=== PATIENT | male | born 1940 | race Caucasian/White ===

== ENCOUNTER 2021-03-05 15:47 | Inpatient (IN) | payer MEDICARE, MEDICAID, SELFPAY ==
[2021-03-05] VITALS (10 sets, daily range): BP systolic 97–143; BP diastolic 49–78; PULSE 75–81; RESP 14–24; TEMP 37.1–37.3; O2SAT 93–100; BMI 20.7; BMI 24.7
--- NOTE | ~2021-03-05 | CT_ITS ---
EXAMINATION: CT brain wo con DATE: 03/05/2021 23:04 INDICATION: Acute cerebrovascular accident TECHNIQUE: Computed tomography (CT) of the head was performed without intravenous contrast. The mA wa s adjusted according to patient size. Iterative reconstruction technique was employed. Exam dose: 68 1.00 mGy-cm total exam DLP. COMPARISON: None FINDINGS: Bilateral carotid siphon internal carotid artery calcifications are noted. There is nonspecific diminished attenuation of the subcortical and periventricular cerebral white mat ter, likely due to chronic small vessel ischemic changes. There is moderately prominent central and cortical cerebral atrophy and cerebellar atrophy. No intracranial mass lesion or hemorrhage, midline shift or mass effect effect is evident. No CT evid ence of cerebrovascular accident is detected, but CT is not sensitive for detection of hyperacute isc hemic cerebrovascular accident. No subdural or epidural hematoma. No fracture or bone destruction of the cranial vault. The mastoid air cells are normally developed and aerated. There is moderate mucoperiosteal thickening of the maxillary sinuses 1.7 cm mucous retention cyst or polyp of the left maxillary sinus. There is prominent patchy opacification of the ethmoid air cells a nd prominent partial soft tissue opacification of the sphenoid sinuses. Minimal soft tissue thickenin g of the frontal sinuses. IMPRESSION: Cerebral atherosclerosis and chronic small vessel ischemic changes of the cerebral white matter No acute intracranial finding is identified Central and cortical cerebral and cerebellar atrophy Paranasal sinus disease Reviewed, dictated and finalized at [facility]. Reviewed, dictated and finalized at [facility].
--- NOTE | ~2021-03-05 | XR_ITS ---
EXAMINATION: XR chest 2V DATE: 03/05/2021 16:29 INDICATION: Weakness. Dizziness. Vomiting. TECHNIQUE: Frontal and lateral views of the chest were obtained. COMPARISON: Chest CT 05/31/2019 FINDINGS: The chest demonstrates clear lungs without pneumonia, pleural effusion, or pneumothorax. Th e heart size is normal. There is a left chest wall pacer with leads in the right atrium and right july tricle. Surgical clips in the right upper quadrant are likely from cholecystectomy. IMPRESSION: 1. No acute cardiopulmonary disease. Reviewed, dictated and finalized at [facility].
--- NOTE | 2021-03-05 16:01 | ECG_ITS ---
Measurements Intervals [place] Rate: 79 P: -75 MT: 211 QRS: 53 QRSD: 148 T: 12 QT: 389 QTc: 447 Interpretive Statements ELECTRONIC ATRIAL PACEMAKER VENTRICULAR PREMATURE COMPLEX RIGHT BUNDLE BRANCH BLOCK BASELINE ARTIFACT- III, V6 ABNORMAL ECG Electronically Signed On 03-05-2021 16:17:04 CDT by Ubaldo Najera D.O.
[2021-03-05 16:17] LABS: Basophils Percent Auto 0.2 % (0.2-1.2); Hematocrit 38.1 % (42.0-52.0); Hemoglobin 12.6 g/dL (14.0-18.0); Immature Granulocyte Absolute 0.09 K/mm3 (0.00-0.031); Immature Granulocyte Percent A 0.5 % (0-0.5); Lymphocytes Percent Auto 15.5 % (18.3-44.2); Mean Corpuscular HGB Conc 33.1 g/dl (32-36); Mean Corpuscular Hemoglobin 29.9 pg (26-34); Mean Corpuscular Volume 90.5 fl (80-100); Mean Platelet Volume 9.5 fl (7.4-10.4); Monocytes Absolute Auto 1.4 K/mm3 (0.1-0.6); Neutrophils Absolute Auto 13.2 K/mm3 (1.3-6.7); Neutrophils Percent Auto 75.8 % (45.5-73.1); Platelet Count Result 197 k/mm3 (150-375); Red Blood Count 4.21 M/mm3 (4.6-6.20); White Blood Count 17.4 K/mm3 (4.5-10.0)
--- NOTE | 2021-03-05 16:20 | ED.WEAKNESS ---
HPI - Weakness General Chief complaint: Weakness <GE Castillo - Last Filed: 03/06/21 16:54> Stated complaint: Weakness <GE Castillo - Last Filed: 03/06/21 16:54> Time Seen by Provider: 03/05/21 16:12 <GE Castillo - Last Filed: 03/06/21 16:54> Source: patient and family <GE Castillo - Last Filed: 03/06/21 16:54> Mode of arrival: wheelchair <GE Castillo - Last Filed: 03/06/21 16:54> Limitations: no limitations <GE Castillo - Last Filed: 03/06/21 16:54> History of Present Illness HPI Narrative: Patient is an 80 year old male who presents with family. Per family, patient has had increased weakness and decreased PO intake with vomiting x 1 for the past 2 days. Patient reports generalized weakness, headache and back pain. Patient has been vaccinated x 2 for Covid and reports no sick contacts. Per family, patient is normally walking and completes all ADLs on own. Family reports patient has been in bed x 2 days. Patient has a history of bladder cancer with urostomy placement last year and pacemaker x approximately 7 years. Patient is alert and oriented answering questions appropriately, denies chest pain or shortness of breath. <GE Castillo - Last Filed: 03/06/21 16:54> MD Complaint: generalized weakness <GE Castillo - Last Filed: 03/06/21 16:54> Related Data Home medications: Home Medications Medication Instructions Recorded Confirmed meclizine 25 mg PO TID PRN 03/06/21 03/06/21 <GE Castillo - Last Filed: 03/06/21 16:54> Allergies/Adverse reactions: Allergies Allergy/AdvReac Type Severity Reaction Status Date / Time No Known Allergies Allergy Verified 03/05/21 17:30 <GE Castillo - Last Filed: 03/06/21 16:54> Review of Systems Review of Systems: Narrative: CONSTITUTIONAL: Denies fever, chills, or sweats. EYES: Denies visual changes, redness, or discharge. ENT: Denies rhinorrhea, congestion, sore throat, or otalgia. CARDIOVASCULAR: Denies chest pain, palpitations, or edema. RESPIRATORY: Denies cough or dyspnea. GASTROINTESTINAL: Denies abdominal pain or diarrhea, reports mild nausea vomiting x1 GENITOURINARY: Denies dysuria or hematuria. SKIN: Denies rash or itching. MUSCULOSKELETAL: Reports back pain, denies joint pain, or myalgia. NEUROLOGIC: Reports headache and generalized weakness. PSYCHIATRIC: Denies anxiety or depression. <GE Castillo - Last Filed: 03/06/21 16:54> [facility] Past Medical History Medical History: Medical History (Updated 03/05/21 @ 22:47 by Ilan Blanc MD) Bladder cancer Chronic renal failure, stage 3 (moderate) Diabetes type 2, controlled Pacemaker <GE Castillo - Last Filed: 03/06/21 16:54> Surgical History Surgical History: Surgical History History of urostomy <GE Castillo - Last Filed: 03/06/21 16:54> Family History Family History: Family History Sibling Family history of Alzheimer's disease Father Family history of coronary artery disease <GE Castillo - Last Filed: 03/06/21 16:54> Social History Social History: Social History Smoking packs per day: 1 Smoking cigarettes per day: 20.0 Smoking status: Current every day smoker Tobacco type: cigarettes Alcohol intake: never Alcohol use details: occasional Substance use: never Living arrangements: with family Gender identity (if verbalized by the patient): Male Spiritual care concerns: No <GE Castillo - Last Filed: 03/06/21 16:54> Comments At the time of signature, I have reviewed and agree with nursing past medical, surgical, social, and family history unless otherwise noted. Please see nursing chart for further inform
[2021-03-05 16:24] LABS: Add Urine Microscopic? YES; Appearance Urine Cloudy (Clear); Bacteria Urine Trace /hpf; Bilirubin Urine Negative (Negative); Blood Urine Negative (Negative); Color Urine Amber (Yellow); Glucose Urine UA Negative (Negative); Ketones Urine Negative (Negative); Leukocyte Esterase Ur 3+ LEU/UL (Negative); Mucus Urine Rare /lpf; Nitrate Urine Negative (Negative); Protein Urine 2+ mg/dL (Negative); Specific Grav Ur 1.017 (1.001-1.035); Squamous Epithelial Cell Urine Rare /hpf (Few); WBC Clumps Urine Present /HPF; WBC Urine >75 /hpf
[2021-03-05 16:27] LABS: Alanine Aminotransferase 20 U/L (4-50); Albumin Level 4.1 g/dL (3.5-5.1); Alkaline Phosphatase 82 U/L (38-126); Anion Gap 7 mmol/L (8-16); Aspartate Amino Transferase 34 U/L (17-59); Blood Urea Nitrogen 41 mg/dL (9-20); Carbon Dioxide 23 mmol/L (22-30); Chloride 106 mmol/L (98-107); Estimated CRCL calculation 21 ml/min; Estimated Glomerular Filt Rate 27; Glucose 156 mg/dL (75-110); Potassium 4.8 mmol/L (3.4-5.0); Sodium 136 mmol/L (137-145)
[2021-03-05] MEDS: SODIUM CHLORIDE 0.9% IV 1,000 ML 999 ML IV CONT (17:29)
--- NOTE | 2021-03-05 20:13 | ADMGEN ---
This patient, Merle Escalona, was admitted to [facility] Surg Room 307-01. Patient/family oriented to hospital policies and general routines including ID bracelet, bed and alarms, visiting hours, pain management, procedures, bathroom and other care routines, personal items, smoking policy, room service/diet, and visiting hours. Information on how to activate the Rapid Response Team has been discussed. Patient/Family are encouraged to report perceived risks to care and to ask questions if they do not understand what they are told or what they should do.
[2021-03-05] MEDS: SODIUM CHLORIDE 0.9% IV 1,000 ML 125 ML IV CONT (20:31)
--- NOTE | 2021-03-05 22:21 | PM.IMHP ---
H&P: HPI History of Present Illness Date/Time: 03/05/21 22:21 Chief Complaint: Generalized weakness and acute encephalopathy for 2 days+ Narrative: This is an 80-year-old diabetic male with known history of bladder cancer who presented to the hospital with increased generalized weakness and decreased p.o. intake over the past couple of days. The patient's family had reported that the patient simply did not get out of bed for the past 2 days. He was found to be in acute renal failure with a creatinine of 2.30 and a grossly abnormal urinalysis. the patient was treated with IV fluids and IV antibiotics in the emergency room. On my encounter with the patient tonight he is alert and oriented to himself but has no idea why he is here in the hospital. It is unknown if the patient is has underlying dementia or has acute encephalopathy. He cannot tell me any medications that he is on and knows that he had some kind of cancer but cannot tell me what type. Currently the patient denies any significant symptoms. His family has already gone home and no other history is obtainable at this time. Review of Systems Review of Systems: All systems reviewed & are unremarkable except as noted in HPI and below PMFSH Past Medical History Medical History (Updated 03/05/21 @ 22:47 by Ilan Blanc MD) Bladder cancer Chronic renal failure, stage 3 (moderate) Diabetes type 2, controlled Pacemaker Surgical History Surgical History History of urostomy Family History Family History Sibling Family history of Alzheimer's disease Father Family history of coronary artery disease Social History Social History Smoking packs per day: 1 Smoking cigarettes per day: 20.0 Smoking status: Current every day smoker Tobacco type: cigarettes Alcohol intake: never Alcohol use details: occasional Substance use: never Living arrangements: with family Gender identity (if verbalized by the patient): Male Spiritual care concerns: No Meds Home Medications and Allergies Home Medications Medication Instructions Recorded Confirmed Type midodrine 2.5 mg PO DAILY 03/05/21 03/05/21 History Allergies Allergy/AdvReac Type Severity Reaction Status Date / Time No Known Allergies Allergy Verified 03/05/21 17:30 Vital Signs Vital Signs - 24 hr 03/05/21 16:02 03/05/21 16:07 03/05/21 16:13 Temperature 37.3 C Pulse Rate 80 78 81 Respiratory Rate 18 24 H Blood Pressure 97/78 L 143/54 H Pulse Oximetry 93 99 03/05/21 16:17 03/05/21 17:31 03/05/21 17:46 Temperature Pulse Rate 78 80 76 Respiratory Rate 23 H 24 H 23 H Blood Pressure 113/68 136/56 L 130/53 L Pulse Oximetry 97 100 99 03/05/21 18:00 03/05/21 18:02 03/05/21 18:17 Temperature Pulse Rate 75 76 79 Respiratory Rate 22 H 23 H 19 Blood Pressure 134/52 L 99/52 L Pulse Oximetry 97 98 98 03/05/21 19:30 Temperature 37.1 C Pulse Rate 75 Respiratory Rate 18 Blood Pressure 131/49 L Pulse Oximetry 97 Exam Const: General: cooperative, no acute distress, alert and awake Nutritional Appearance: well nourished Orientation/consciousness: oriented to person and confusion HENMT: Head: normal to inspection General nose exam: Normal external nose present Face and sinus: normal facial exam Mouth: Yes Normal oral and palatal mucosa present and Yes oropharynx normal Eyes: Pupils: Equal, round and reactive pupils present EOM: EOMs intact bilaterally Neck: Neck: supple and no JVD Thyroid: thyroid normal Lymphatic: lymphadenopathy not noted Resp: Effort & Inspection: normal respiratory effort Auscultation: clear to auscultation bilaterally Cardio: Rate: regular rate Rhythm: regular rhythm Heart sounds: no murmurs GI: Inspection: normal to inspection Auscultation: normal bowel sounds Skin:
[2021-03-06 06:00] VITALS: BP 141/60; PULSE 75; RESP 18; TEMP 36.7; O2SAT 94
[2021-03-06 07:52] LABS: Glucose Point of Care 98 (65-105)
[2021-03-06] MEDS: SODIUM CHLORIDE 0.9% IV 1,000 ML 125 ML IV CONT (09:57)
--- NOTE | 2021-03-06 11:13 | PM.IMPN ---
Progress Note: A&P Assessment and Plan (1) Acute encephalopathy: Code(s): G93.40 - Encephalopathy, unspecified Status: Acute Assessment and Plan: The patient has been placed in observation status. Acute altered mental status may be secondary to acute renal failure, UTI, or possibly chronic dementia. Will check a CT brain without contrast that has been done yet. Neuro checks. Check B12 and folate levels. Continue treatment for acute renal failure and possible UTI. 03/06/21 11:13 patient 80-year-old male with history of bladder cancer patient had been somnolent fatigue and had not been getting out of the bed patient was brought to the emergency department further evaluate, he was quite confused upon arrival, he was found to be dehydrated and has a UTI patient was started on gentle hydration and ceftriaxone for UTI, patient is more alert oriented and provides appropriate answers for every question and he wants to go home, patient is clinically stable will continue to hydrate and will continue ceftriaxone for possible UTI follow-up on culture and sensitivity and further recommendation to follow, the PT OT evaluate the patient patient will benefit from acute rehab before discharging home (2) Acute on chronic renal failure: Qualifiers: Acute renal failure type: unspecified Chronic kidney disease stage: stage 3 (moderate) Chronic kidney disease stage 3 subtype: stage 3b (GFR 30-44) Qualified Code(s): N17.9 - Acute kidney failure, unspecified; N18.32 - Chronic kidney disease, stage 3b Code(s): N17.9 - Acute kidney failure, unspecified; N18.9 - Chronic kidney disease, unspecified Status: Acute Assessment and Plan: Likely secondary to poor p.o. intake of fluids over the past few days as the patient's family had reported that he was not eating or drinking anything. Continue IV fluid challenge. Avoid nephrotoxin agents. Renally dose medications. Monitor urine output and renal function. Consider renal ultrasound and Nephrology consultation in a.m. if renal function is not back to baseline (3) Generalized weakness: Code(s): R53.1 - Weakness Status: Acute Assessment and Plan: May be secondary to chronic illnesses, debility versus acute UTI. PT OT evaluation when appropriate. (4) Abnormal urinalysis: Code(s): R82.90 - Unspecified abnormal findings in urine Status: Acute Assessment and Plan: Rule out complicated UTI. Continue IV ceftriaxone. Urine cultures pending. (5) Leukocytosis: Qualifiers: Leukocytosis type: unspecified Qualified Code(s): D72.829 - Elevated white blood cell count, unspecified Code(s): D72.829 - Elevated white blood cell count, unspecified Status: Acute Assessment and Plan: Likely secondary to UTI. Monitor CBCD. (6) Chronic anemia: Code(s): D64.9 - Anemia, unspecified Status: Chronic Assessment and Plan: Likely anemia of chronic disease. No signs of acute blood loss. Monitor H&H, transfuse p.r.n. (7) Diabetes mellitus: Qualifiers: Diabetes mellitus type: type 2 Diabetes mellitus shelter insulin use: without long term care social worker use Diabetes mellitus complication status: without complication Qualified Code(s): E11.9 - Type 2 diabetes mellitus without complications Code(s): E11.9 - Type 2 diabetes mellitus without complications Status: Chronic Assessment and Plan: Accu-Cheks, sliding scale insulin coverage, hypoglycemia protocol. (8) Bladder cancer: Code(s): C67.9 - Malignant neoplasm of bladder, unspecified Status: Chronic Assessment and Plan: Continue Urology recommendations. Subjective Date/time seen: 03/06/21 11:13 patient 80-year-old male with history of bladder cancer patient had been somnolent fatigue and had not been getting out of the bed patient was brought to the emergency department further evaluate, he was quite confused up
[2021-03-06] MEDS: MIDODRINE HCL 2.5 MG TABLET PO (11:41)
[2021-03-06 11:55] LABS: Glucose Point of Care 92 (65-105)
[2021-03-06 14:00] VITALS: BP 119/53; BP 126/40; BP 134/47; PULSE 76; RESP 20; TEMP 37.4; O2SAT 100
[2021-03-06 16:21] LABS: Glucose Point of Care 104 (65-105)
[2021-03-06 19:22] LABS: Basophils Percent Auto 0.2 % (0.2-1.2); Eosinophils Percent Auto 0.4 % (0-4.4); Hematocrit 34.1 % (42.0-52.0); Hemoglobin 11.2 g/dL (14.0-18.0); Immature Granulocyte Absolute 0.02 K/mm3 (0.00-0.031); Immature Granulocyte Percent A 0.2 % (0-0.5); Lymphocytes Absolute Auto 1.42 K/mm3 (0.9-3.2); Lymphocytes Percent Auto 17.1 % (18.3-44.2); Mean Corpuscular HGB Conc 32.8 g/dl (32-36); Mean Corpuscular Hemoglobin 29.2 pg (26-34); Mean Platelet Volume 9.7 fl (7.4-10.4); Monocytes Absolute Auto 0.7 K/mm3 (0.1-0.6); Monocytes Percent Auto 8.4 % (2.6-8.5); Neutrophils Absolute Auto 6.1 K/mm3 (1.3-6.7); Neutrophils Percent Auto 73.7 % (45.5-73.1); Platelet Count Result 161 k/mm3 (150-375); Red Blood Count 3.83 M/mm3 (4.6-6.20); Red Cell Distribution Width 13.9 % (11.5-14.5); White Blood Count 8.3 K/mm3 (4.5-10.0)
[2021-03-06 19:32] LABS: Magnesium 1.8 mg/dL (1.6-2.3)
[2021-03-06 19:33] LABS: Alanine Aminotransferase 39 U/L (4-50); Albumin Level 3.1 g/dL (3.5-5.1); Alkaline Phosphatase 114 U/L (38-126); Anion Gap 4 mmol/L (8-16); Aspartate Amino Transferase 65 U/L (17-59); Bilirubin,Total 0.5 mg/dL (0.2-1.3); Blood Urea Nitrogen 34 mg/dL (9-20); Calcium 7.8 mg/dL (8.4-10.2); Carbon Dioxide 21 mmol/L (22-30); Chloride 109 mmol/L (98-107); Estimated CRCL calculation 25 ml/min; Estimated Glomerular Filt Rate 34; Glucose 125 mg/dL (75-110); Potassium 4.5 mmol/L (3.4-5.0); Sodium 134 mmol/L (137-145)
[2021-03-06 20:38] LABS: Folic Acid 13.5 ng/mL (2.76->20)
[2021-03-06 20:50] LABS: Thyroid Stimulating Hormone Reflex 0.831 uIU/mL (0.465-4.68)
[2021-03-06 22:00] VITALS: BP 145/57; PULSE 75; RESP 20; TEMP 36.6; O2SAT 98
[2021-03-06 22:02] LABS: Glucose Point of Care 110 (65-105)
[2021-03-07 06:00] VITALS: BP 135/63; PULSE 77; RESP 16; TEMP 36.3; O2SAT 97
[2021-03-07] MEDS: SODIUM CHLORIDE 0.9% IV 1,000 ML 125 ML IV CONT (06:46)
[2021-03-07 08:28] LABS: Hematocrit 35.2 % (42.0-52.0); Hemoglobin 11.7 g/dL (14.0-18.0); Mean Corpuscular HGB Conc 33.2 g/dl (32-36); Mean Corpuscular Hemoglobin 29.6 pg (26-34); Mean Corpuscular Volume 89.1 fl (80-100); Mean Platelet Volume 9.7 fl (7.4-10.4); Platelet Count Result 161 k/mm3 (150-375); Red Blood Count 3.95 M/mm3 (4.6-6.20); Red Cell Distribution Width 13.8 % (11.5-14.5); White Blood Count 6.6 K/mm3 (4.5-10.0)
[2021-03-07 08:35] LABS: Anion Gap 6 mmol/L (8-16); Blood Urea Nitrogen 30 mg/dL (9-20); Calcium 7.8 mg/dL (8.4-10.2); Carbon Dioxide 20 mmol/L (22-30); Chloride 110 mmol/L (98-107); Estimated CRCL calculation 28 ml/min; Estimated Glomerular Filt Rate 39; Glucose 98 mg/dL (75-110); Potassium 4.2 mmol/L (3.4-5.0); Sodium 136 mmol/L (137-145)
[2021-03-07 08:58] LABS: Glucose Point of Care 87 (65-105)
[2021-03-07] MEDS: MIDODRINE HCL 2.5 MG TABLET PO (09:04)
[2021-03-07 12:14] LABS: Glucose Point of Care 97 (65-105)
[2021-03-07 14:00] VITALS: BP 133/50; PULSE 78; RESP 16; TEMP 36.3; O2SAT 99
--- NOTE | 2021-03-07 14:59 | PM.DS ---
DS: Admitting Diagnosis Admitting Diagnosis Admitting Diagnosis: Chief Complaint: Generalized weakness and acute encephalopathy for 2 days+ DS: Discharge Diagnosis Discharge Diagnosis (1) Acute encephalopathy: Code(s): G93.40 - Encephalopathy, unspecified Status: Acute Assessment and Plan: The patient has been placed in observation status. Acute altered mental status may be secondary to acute renal failure, UTI, or possibly chronic dementia. Will check a CT brain without contrast that has been done yet. Neuro checks. Check B12 and folate levels. Continue treatment for acute renal failure and possible UTI. 03/06/21 11:13 patient 80-year-old male with history of bladder cancer patient had been somnolent fatigue and had not been getting out of the bed patient was brought to the emergency department further evaluate, he was quite confused upon arrival, he was found to be dehydrated and has a UTI patient was started on gentle hydration and ceftriaxone for UTI, patient is more alert oriented and provides appropriate answers for every question and he wants to go home, patient is clinically stable will continue to hydrate and will continue ceftriaxone for possible UTI follow-up on culture and sensitivity and further recommendation to follow, the PT OT evaluate the patient patient will benefit from acute rehab before discharging home (2) Acute on chronic renal failure: Qualifiers: Acute renal failure type: unspecified Chronic kidney disease stage: stage 3 (moderate) Chronic kidney disease stage 3 subtype: stage 3b (GFR 30-44) Qualified Code(s): N17.9 - Acute kidney failure, unspecified; N18.32 - Chronic kidney disease, stage 3b Code(s): N17.9 - Acute kidney failure, unspecified; N18.9 - Chronic kidney disease, unspecified Status: Acute Assessment and Plan: Likely secondary to poor p.o. intake of fluids over the past few days as the patient's family had reported that he was not eating or drinking anything. Continue IV fluid challenge. Avoid nephrotoxin agents. Renally dose medications. Monitor urine output and renal function. Consider renal ultrasound and Nephrology consultation in a.m. if renal function is not back to baseline (3) Generalized weakness: Code(s): R53.1 - Weakness Status: Acute Assessment and Plan: May be secondary to chronic illnesses, debility versus acute UTI. PT OT evaluation when appropriate. (4) Abnormal urinalysis: Code(s): R82.90 - Unspecified abnormal findings in urine Status: Acute Assessment and Plan: Rule out complicated UTI. Continue IV ceftriaxone. Urine cultures pending. (5) Leukocytosis: Qualifiers: Leukocytosis type: unspecified Qualified Code(s): D72.829 - Elevated white blood cell count, unspecified Code(s): D72.829 - Elevated white blood cell count, unspecified Status: Acute Assessment and Plan: Likely secondary to UTI. Monitor CBCD. (6) Chronic anemia: Code(s): D64.9 - Anemia, unspecified Status: Chronic Assessment and Plan: Likely anemia of chronic disease. No signs of acute blood loss. Monitor H&H, transfuse p.r.n. (7) Diabetes mellitus: Qualifiers: Diabetes mellitus type: type 2 Diabetes mellitus terminal press operator insulin use: without mcc use Diabetes mellitus complication status: without complication Qualified Code(s): E11.9 - Type 2 diabetes mellitus without complications Code(s): E11.9 - Type 2 diabetes mellitus without complications Status: Chronic Assessment and Plan: Accu-Cheks, sliding scale insulin coverage, hypoglycemia protocol. (8) Bladder cancer: Code(s): C67.9 - Malignant neoplasm of bladder, unspecified Status: Chronic Assessment and Plan: Continue Urology recommendations. DS: Summary Hospital Course Reason for hospitalization: Chief Complaint: Generalized weakness and acute encephalopa
--- NOTE | 2021-03-07 15:07 | PCPTNOTE ---
Patient declined PT stating I am doing fine. I will be going home. Patient denies needing assist for mobility.
== END 2021-03-07 16:05 | disposition home or self-care (01) | DRG 690 ==
LOC: ANHED 17:19 → ANH3MEDSUR 18:48
PROVIDERS: Emergency Medicine; Family Medicine; Admitting Provider Internal Medicine; Emergency Provider Nurse Practitioner; PCP Family Medicine; Visit Provider Family Medicine
DX: N39.0 Urinary tract infection, site not specified (principal); N17.9 Acute kidney failure, unspecified; G93.49 Other encephalopathy; E86.0 Dehydration; C67.9 Malignant neoplasm of bladder, unspecified; D63.8 Anemia in other chronic diseases classified elsewhere; E11.22 Type 2 diabetes mellitus with diabetic chronic kidney disease; N18.32 Chronic kidney disease, stage 3b; D72.829 Elevated white blood cell count, unspecified; R53.81 Other malaise; F17.210 Nicotine dependence, cigarettes, uncomplicated; Z95.0 Presence of cardiac pacemaker
CPT/HCPCS: 36415; 70450; 71046; 80048; 80053; 81001; 82607; 82746; 82948; 83605; 83735; 84443; 85025; 85027; 87040; 87077; 87086; 87088; 87186; 93005; 96361; 96365; 96366; 97110; 97161; 97165; 99285; A9270; G0378; J0696; J7030

== ENCOUNTER 2021-03-12 21:33 | Emergency (ER) | payer MEDICARE, MEDICAID, SELFPAY ==
[2021-03-12] VITALS (7 sets, daily range): BP systolic 126–197; BP diastolic 66–80; PULSE 75–88; RESP 18–23; TEMP 36.8–36.9; O2SAT 97–99
--- NOTE | ~2021-03-12 | CT_ITS ---
EXAMINATION: CT abdomen pelvis wo con DATE: 03/12/2021 22:49 INDICATION: Right flank pain. History of UTI. TECHNIQUE: Computed tomography (CT) of the abdomen and pelvis was performed without intravenous contr ast. The dose-length product was 303.64 mGy-cm. Automated exposure control and iterative reconstructi on technique were employed. COMPARISON: None. FINDINGS: Lung bases are unremarkable. Heart size normal. No significant pleural or pericardial effus ion. There is enlargement of the right kidney with mild perinephric stranding and hydronephrosis. There is ureteral diversion with ostomy site in the right lower abdomen. The bladder is likely surgically abs ent. Nonobstructive bowel gas pattern. Status post cholecystectomy. The liver, spleen, pancreas, adre nal glands are unremarkable. There is left renal atrophy. No abnormal pelvic masses or fluid collecti ons. No focal lytic or blastic lesions. IMPRESSION: 1. Asymmetric enlargement of the right kidney with perinephric stranding and mild hydronephrosis. No obstructing stone or mass is identified to the level of the urinary diversion. Consider ascending uri nary tract infection/pyelonephritis in the appropriate clinical setting. Reviewed, dictated and finalized at [facility]. IMPRESSION: 1. Asymmetric enlargement of the right kidney with perinephric stranding and mi ld hydronephrosis. No obstructing stone or mass is identified to the level of t he urinary diversion. Consider ascending urinary tract infection/pyelonephritis in the appropriate clinical setting.
--- NOTE | ~2021-03-12 | CT_ITS ---
EXAMINATION: CTA chest PE protocol DATE: 03/12/2021 23:33 CDT INDICATION: Pulmonary embolism TECHNIQUE: Computed tomographic angiography (CTA) of the chest was performed with 100 mL Omnipaque-35 0 intravenous contrast. The dose-length product was 339.28 mGy-cm. Maximum intensity projection 3D-re constructions of the aorta and other arteries were constructed by the technologist on a separate work station. Automated exposure control and iterative reconstruction technique were employed. COMPARISON: CT dated 05/31/2019. FINDINGS: Study is technically adequate without evidence for pulmonary embolism. Small hiatal hernia with thickening of the distal esophagus. Trace right pleural effusion. Heart size is normal. There is atherosclerosis of the aorta without evidence for aneurysm or dissection. There is a 5 mm right apic al nodule there is a 5 mm right middle lobe nodule, image 72. Left kidney appears atrophic, although only partially visualized. There are cholecystectomy clips. No focal airspace consolidation to sugges t pneumonia. IMPRESSION: 1. No evidence for pulmonary embolism. 2: Pulmonary nodules of the right lung measuring up to 5 mm, likely benign. Follow-up low dose CT brayan st in 12 months recommended. 3: Small hiatal hernia with thickening of the distal the esophagus, suspicious for esophagitis. Reviewed, dictated and finalized at location A. IMPRESSION: 1. No evidence for pulmonary embolism. 2: Pulmonary nodules of the right lung measuring up to 5 mm, likely benign. Fol low-up low dose CT chest in 12 months recommended. 3: Small hiatal hernia with thickening of the distal the esophagus, suspicious for esophagitis.
--- NOTE | ~2021-03-12 | XR_ITS ---
EXAMINATION: XR chest 1V portable 03/12/2021 22:02 INDICATION: Shortness of breath and weakness. PROCEDURE: AP portable chest COMPARISON: 03/05/2021 FINDINGS: The lungs are clear. The cardiomediastinal silhouette is within normal limits. There are no pleural effusions. There is no pneumothorax suspected. Pacemaker leads are stable. IMPRESSION: 1: NO ACUTE CARDIOPULMONARY DISEASE. Reviewed, dictated and finalized at location A.
--- NOTE | 2021-03-12 21:52 | ECG_ITS ---
Measurements Intervals [place] Rate: 75 P: -77 [place]: 284 QRS: 52 QRSD: 149 T: 33 QT: 422 QTc: 472 Interpretive Statements ELECTRONIC ATRIAL PACEMAKER RIGHT BUNDLE BRANCH BLOCK ABNORMAL ECG Electronically Signed On 03-13-2021 8:33:02 CDT by Ubaldo Najera D.O.
[2021-03-12 22:07] LABS: Alveolar/Arterial O2 Gradient 36.5 mmHg; Base Excess ABG -2.7 mEq/l (+/-2.0); Fractional Inspired Oxygen 21 %; HCO3 ABG 21.1 mEq/l (22.0-26.0); Oxygen Content ABG 17.1 %vol (16.0-22.0); Oxyhemoglobin 94.1 % THb (90.0-100.0); PCO2 ABG 33.7 mmHg (35.0-45.0); PO2 ABG 72.9 mmHg (80.0-100.0); PO2 FiO2 Ratio Arterial Blood 3.47 %; Total Hemoglobin 12.9 g/dL (12.0-18.0); pH ABG 7.415 (7.350-7.450)
[2021-03-12 22:08] LABS: Device ROOM AIR; Modified Allen's Test Pass; Site Drawn RIGHT RADIAL
--- NOTE | 2021-03-12 22:20 | ED.SOB ---
HPI - SOB/Dyspnea General Chief Complaint: Shortness of Breath/Dyspnea <Jean Pierre Crowder PA-C - Last Filed: 03/13/21 00:27> Stated Complaint: sob, rib pain <Jean Pierre Crowder PA-C - Last Filed: 03/13/21 00:27> Time Seen by Provider: 03/12/21 21:52 <Jean Pierre Crowder PA-C - Last Filed: 03/13/21 00:27> Source: patient, family and old records reviewed <Jean Pierre Crowder PA-C - Last Filed: 03/13/21 00:27> Mode of arrival: ambulatory <Jean Pierre Crowder PA-C - Last Filed: 03/13/21 00:27> Limitations: no limitations <Jean Pierre Crowder PA-C - Last Filed: 03/13/21 00:27> History of Present Illness HPI Narrative: Patient is a 80-year-old male who presents to emergency department with right sided abdominal pain for the last 2 to 3 days patient had recent urinary tract infection but was evaluated and treated in hospital patient over the last couple of days has been complaining of right-sided flank pain patient denies any fever chills nausea vomiting injury trauma patient presents in no distress has not taken anything for his symptoms has not been seen for this complaint <Jean Pierre Crowder PA-C - Last Filed: 03/13/21 00:27> Related Data Home Medications: Home Medications Medication Instructions Recorded Confirmed meclizine 25 mg PO TID PRN 03/06/21 03/06/21 <JESUS Palacios Last Filed: 03/13/21 00:27> Allergies/Adverse Reactions: Allergies Allergy/AdvReac Type Severity Reaction Status Date / Time No Known Allergies Allergy Verified 03/12/21 21:40 <Jean Pierre Crowder PA-C - Last Filed: 03/13/21 00:27> Review of Systems Review of Systems: All systems reviewed & are unremarkable except as noted in HPI and below <Jean Pierre Crowder PA-C - Last Filed: 03/13/21 00:27> PMFSH Past Medical History Medical History: Medical History Bladder cancer Chronic renal failure, stage 3 (moderate) Diabetes type 2, controlled Pacemaker <Jaen Pierre Crowder PA-C - Last Filed: 03/13/21 00:27> Surgical History Surgical History: Surgical History History of urostomy <Jean Pierre Crowder PA-C - Last Filed: 03/13/21 00:27> Family History Family History: Family History Sibling Family history of Alzheimer's disease Father Family history of coronary artery disease <Jean Pierre Crowder PA-C - Last Filed: 03/13/21 00:27> Social History Social History: Social History Smoking packs per day: 1 Smoking cigarettes per day: 20.0 Smoking status: Current every day smoker Tobacco type: cigarettes Alcohol intake: never Substance use: never Gender identity (if verbalized by the patient): Male Spiritual care concerns: No <Jean Pierre Crowder PA-C - Last Filed: 03/13/21 00:27> Exam Narrative: Exam Narrative: GENERAL: Well-appearing, well-nourished, and in no acute distress. HEAD: Normocephalic, atraumatic. EYES: PERRLA and EOMI. ENT: Nares clear, no rhinorrhea or epistaxis. Mucous membranes moist. CHEST: Clear to auscultation. No respiratory distress. No wheezes rales or rhonchi HEART: Regular rate and rhythm. No murmur heard. Normal peripheral pulses. ABDOMEN: Soft, right-sided abdominal tenderness, nondistended, clear urine in the urostomy EXTREMITIES: Normal range of motion. No edema. SKIN: Warm, dry, no rash. NEURO: No focal deficits. Alert and oriented x3. Cranial nerves II through XII grossly intact PSYCH: Normal mood and affect. <Jean Pierre Crowder PA-C - Last Filed: 03/13/21 00:27> Course Course Emergency Course: Patient was evaluated in the emergency department for right side pain and flank pain in nature worse with activity movement was given fluids and antibiotic saw his urologist yesterday and normal urinalysis
[2021-03-12 22:35] LABS: Basophils Absolute Auto 0.1 K/mm3 (0.0-0.1); Basophils Percent Auto 0.8 % (0.2-1.2); Eosinophils Absolute Auto 0.2 K/mm3 (0-0.3); Eosinophils Percent Auto 2.5 % (0-4.4); Hematocrit 36.8 % (42.0-52.0); Immature Granulocyte Absolute 0.04 K/mm3 (0.00-0.031); Immature Granulocyte Percent A 0.4 % (0-0.5); Lymphocytes Absolute Auto 2.64 K/mm3 (0.9-3.2); Lymphocytes Percent Auto 28.8 % (18.3-44.2); Mean Corpuscular HGB Conc 32.6 g/dl (32-36); Mean Corpuscular Hemoglobin 29.6 pg (26-34); Mean Corpuscular Volume 90.9 fl (80-100); Mean Platelet Volume 9.3 fl (7.4-10.4); Monocytes Percent Auto 10.8 % (2.6-8.5); Neutrophils Absolute Auto 5.2 K/mm3 (1.3-6.7); Neutrophils Percent Auto 56.7 % (45.5-73.1); Platelet Count Result 255 k/mm3 (150-375); Red Blood Count 4.05 M/mm3 (4.6-6.20); Red Cell Distribution Width 14.3 % (11.5-14.5); White Blood Count 9.2 K/mm3 (4.5-10.0)
[2021-03-12 22:41] LABS: Add Urine Microscopic? YES; Appearance Urine Cloudy (Clear); Bilirubin Urine Negative (Negative); Blood Urine 2+ (Negative); Color Urine Yellow (Yellow); Glucose Urine UA Negative (Negative); Ketones Urine Negative (Negative); Leukocyte Esterase Ur 1+ LEU/UL (Negative); Mucus Urine Rare /lpf; Nitrate Urine Negative (Negative); Protein Urine Negative (Negative); Specific Grav Ur 1.011 (1.001-1.035); Urobilinogen Urine Negative mg/dL (<2.0); WBC Urine 16-20 /hpf
[2021-03-12] MEDS: SODIUM CHLORIDE 0.9% IV 500 ML 999 ML IV CONT ×2 (22:44→23:44)
[2021-03-12 22:46] LABS: Alanine Aminotransferase 26 U/L (4-50); Albumin Level 3.7 g/dL (3.5-5.1); Alkaline Phosphatase 113 U/L (38-126); Anion Gap 4 mmol/L (8-16); Aspartate Amino Transferase 29 U/L (17-59); Bilirubin,Total 0.5 mg/dL (0.2-1.3); Blood Urea Nitrogen 20 mg/dL (9-20); Calcium 8.6 mg/dL (8.4-10.2); Carbon Dioxide 28 mmol/L (22-30); Chloride 103 mmol/L (98-107); Estimated CRCL calculation 32 ml/min; Estimated Glomerular Filt Rate 45; Glucose 105 mg/dL (75-110); Magnesium 1.7 mg/dL (1.6-2.3); Potassium 4.1 mmol/L (3.4-5.0); Sodium 135 mmol/L (137-145)
[2021-03-12 22:49] LABS: INR 0.9; Prothrombin Time 12.8 Seconds (11.1-14.7)
[2021-03-12 22:50] LABS: Partial Thromboplastin Time 30.6 SECONDS (22.3-36.8)
[2021-03-12 22:52] LABS: D Dimer 3.13 ug/mL (<0.48)
[2021-03-12 22:58] LABS: NT Pro B Type Natriuretic Pept 1480 PG/ML (5-100); Troponin I < 0.012 ng/mL (0.000-0.034)
[2021-03-13] MEDS: FAMOTIDINE 20 MG/2 ML VIAL IV PUSH (00:02)
[2021-03-13 00:51] VITALS: BP 129/78; PULSE 68; RESP 16; O2SAT 96
== END 2021-03-13 00:52 | disposition home or self-care (01) ==
PROVIDERS: Emergency Medicine; Emergency Medicine Emergency Medical Services; Emergency Provider General Practice; PCP Family Medicine
DX: N39.0 Urinary tract infection, site not specified (principal); E11.22 Type 2 diabetes mellitus with diabetic chronic kidney disease; N18.30 Chronic kidney disease, stage 3 unspecified; Z95.0 Presence of cardiac pacemaker; Z85.51 Personal history of malignant neoplasm of bladder; F17.210 Nicotine dependence, cigarettes, uncomplicated; I45.10 Unspecified right bundle-branch block; K44.9 Diaphragmatic hernia without obstruction or gangrene; R91.8 Other nonspecific abnormal finding of lung field
CPT/HCPCS: 36415; 36600; 71045; 71275; 74176; 80053; 81001; 82805; 83735; 83880; 84484; 85025; 85380; 85610; 85730; 87077; 87086; 87088; 87147; 87181; 87186; 93005; 96361; 96365; 96367; 96375; 99284; J0131; J0696; J7030; J7040; Q9967

== ENCOUNTER 2022-01-13 09:08 | Emergency (ER) | payer OTHER, SELFPAY ==
--- NOTE | ~2022-01-13 | XR_ITS ---
EXAMINATION: XR chest 1V portable EXAM DATE: 01/13/2022 09:48 INDICATION: cough, sob TECHNIQUE: Portable AP frontal chest x-ray was obtained. Comparison is made to prior examination from 03/12/2021. FINDINGS: The lungs are hyperinflated which can be seen with chronic obstructive pulmonary disease (a clinical diagnosis of functional impairment), but is not diagnostic of it. There is a dual lead pace maker/AICD seen with leads projecting over the expected locations of the right atrial appendage and r ight ventricle. No confluent consolidation, pneumothorax or pleural effusion suspected. The bones are osteopenic. There are bony degenerative changes. IMPRESSION: Hyperinflation. Reviewed, dictated and finalized at location A. R RELATIONS SPECIALIST IMPRESSION: Hyperinflation.
[2022-01-13 09:18] VITALS: BP 156/73; PULSE 80; RESP 18; TEMP 36.4; O2SAT 98
[2022-01-13 09:20] VITALS: BP 156/73; PULSE 85; O2SAT 97
--- NOTE | 2022-01-13 09:22 | ECG_ITS ---
Measurements Intervals [place] Rate: 81 P: -85 CT: 245 QRS: 68 QRSD: 80 T: -47 QT: 428 QTc: 498 Interpretive Statements ELECTRONIC ATRIAL PACEMAKER FREQUENT ATRIAL PREMATURE COMPLEXES RIGHT BUNDLE BRANCH BLOCK BASELINE ARTIFACT- II, III, AVR, AVF, V1, V3-V6 ABNORMAL ECG Electronically Signed On 01-13-2022 10:19:14 [employer]ONDS GRADER by Ubaldo Najera D.O.
[2022-01-13 09:36] LABS: Basophils Absolute Auto 0.1 K/mm3 (0.0-0.1); Basophils Percent Auto 0.5 % (0.2-1.2); Eosinophils Absolute Auto 0.5 K/mm3 (0-0.3); Eosinophils Percent Auto 3.9 % (0-4.4); Hematocrit 40.7 % (42.0-52.0); Hemoglobin 13.2 g/dL (14.0-18.0); Immature Granulocyte Absolute 0.03 K/mm3 (0.00-0.031); Immature Granulocyte Percent A 0.2 % (0-0.5); Lymphocytes Absolute Auto 5.67 K/mm3 (0.9-3.2); Lymphocytes Percent Auto 44.8 % (18.3-44.2); Mean Corpuscular HGB Conc 32.4 g/dl (32-36); Mean Corpuscular Hemoglobin 30.5 pg (26-34); Mean Platelet Volume 9.1 fl (7.4-10.4); Monocytes Absolute Auto 0.8 K/mm3 (0.1-0.6); Monocytes Percent Auto 6.3 % (2.6-8.5); Neutrophils Absolute Auto 5.6 K/mm3 (1.3-6.7); Neutrophils Percent Auto 44.3 % (45.5-73.1); Platelet Count Result 208 k/mm3 (150-375); Red Blood Count 4.33 M/mm3 (4.6-6.20); White Blood Count 12.7 K/mm3 (4.5-10.0)
[2022-01-13 09:46] LABS: Alanine Aminotransferase 16 U/L (4-50); Albumin Level 4.4 g/dL (3.5-5.1); Alkaline Phosphatase 71 U/L (38-126); Anion Gap 7 mmol/L (8-16); Aspartate Amino Transferase 26 U/L (17-59); Bilirubin,Total 0.6 mg/dL (0.2-1.3); Blood Urea Nitrogen 33 mg/dL (9-20); Calcium 9.1 mg/dL (8.4-10.2); Carbon Dioxide 24 mmol/L (22-30); Chloride 109 mmol/L (98-107); Estimated CRCL calculation 30 ml/min; Estimated Glomerular Filt Rate 42; Glucose 159 mg/dL (65-110); Potassium 4.5 mmol/L (3.4-5.0); Sodium 140 mmol/L (137-145)
--- NOTE | 2022-01-13 09:58 | ED.SOB ---
HPI - SOB/Dyspnea General Chief Complaint: Shortness of Breath/Dyspnea Stated Complaint: SOB Time Seen by Provider: 01/13/22 09:25 History of Present Illness HPI Narrative: Patient is an 81-year-old male who presents ER with cough. Began last night. Associated with shortness of breath. Cough is productive of frothy white sputum. Symptoms are worse when lying down and better when sitting up. No fevers or chills or sweats. No chest pain at this time, did have some discomfort that was better with change of position last night. No known sick contacts. No lower extremity swelling. Denies any alleviating factors. Related Data Home Medications Medication Instructions Recorded Confirmed meclizine 25 mg PO TID PRN 03/06/21 03/06/21 Allergies Allergy/AdvReac Type Severity Reaction Status Date / Time No Known Allergies Allergy Verified 01/13/22 09:22 Review of Systems Review of Systems: All systems reviewed & are unremarkable except as noted in HPI and below Constitutional: Constitutional: Denies chills, Denies fever(s) and Denies weakness ENT: Denies nasal congestion and Denies sore throat Cardiovascular: Cardiovascular: Reports chest pain, Denies rapid heart rate and Denies radiating jaw, neck or arm pain Respiratory: Respiratory: Reports cough, Reports dyspnea and Denies wheezing Gastrointestinal: Gastrointestinal: Denies abdominal pain, Denies diarrhea, Denies nausea and Denies vomiting Musculoskeletal: Musculoskeletal: Denies myalgias Neurologic: Denies syncope, Denies focal weakness and Denies numbness PMFSH Past Medical History Medical History Bladder cancer Chronic renal failure, stage 3 (moderate) Diabetes type 2, controlled Pacemaker Surgical History Surgical History History of urostomy Family History Family History Sibling Family history of Alzheimer's disease Father Family history of coronary artery disease Social History Social History Smoking packs per day: 1 Smoking cigarettes per day: 20.0 Smoking status: Current every day smoker Tobacco type: cigarettes Alcohol intake: never Alcohol use details: occasional Substance use: never Gender identity (if verbalized by the patient): Male Spiritual care concerns: No Exam Narrative: GENERAL: Well-appearing, well-nourished, and in no acute distress. HEAD: Normocephalic, atraumatic. ENT: Mucous membranes moist. CHEST: Clear to auscultation. No respiratory distress. HEART: Regular rate and rhythm. Normal peripheral pulses. ABDOMEN: Soft, nontender, nondistended. EXTREMITIES: Normal range of motion. No edema. SKIN: Warm, dry, no rash. NEURO: Alert and oriented x3. PSYCH: Normal mood and affect. Course Vital Signs Vital signs: Vital Signs Temperature 97.6 F 01/13/22 09:18 Pulse Rate 80 01/13/22 09:18 Respiratory Rate 18 01/13/22 09:18 Blood Pressure 156/73 H 01/13/22 09:18 Pulse Oximetry 98 01/13/22 09:18 Temperature 97.6 F 01/13/22 09:18 Pulse Rate 80 01/13/22 09:18 Respiratory Rate 18 01/13/22 09:18 Blood Pressure 156/73 H 01/13/22 09:18 Pulse Oximetry 98 01/13/22 09:18 MDM - SOB/Dyspnea Lab Data Result diagrams: 01/13/22 09:29 01/13/22 09:30 Labs: Lab Results 01/13/22 01/13/22 01/13/22 Range/Units 09:29 09:29 09:30 WBC 12.7 H (4.5-10.0) K/mm3 RBC 4.33 L (4.6-6.20) M/mm3 Hgb 13.2 L (14.0-18.0) g/dL Hct 40.7 L (42.0-52.0) % MCV 94.0 (80-100) fl MCH 30.5 (26-34) pg MCHC 32.4 (32-36) g/dl RDW 14.0 (11.5-14.5) % Plt Count 208 (150-375) k/mm3 MPV 9.1 (7.4-10.4) fl Immature Gran % (Auto) 0.2 (0-0.5) % Neut % (Auto) 44.3 L (45.5-73.1) % Lymph % (Auto)
[2022-01-13 10:24] LABS: NT Pro B Type Natriuretic Pept 698 pg/mL (5-100); Troponin I < 0.012 ng/mL (0.000-0.034)
[2022-01-13 11:00] VITALS: O2SAT 96
[2022-01-13 11:16] VITALS: BP 163/75; PULSE 76; RESP 17; O2SAT 97
[2022-01-13 11:17] LABS: Add Urine Microscopic? YES; Appearance Urine Clear (Clear); Bacteria Urine Trace /hpf; Bilirubin Urine Negative (Negative); Blood Urine Negative (Negative); Color Urine Yellow (Yellow); Glucose Urine UA Negative (Negative); Ketones Urine Negative (Negative); Leukocyte Esterase Ur 1+ LEU/UL (Negative); Mucus Urine Rare /lpf; Nitrate Urine Negative (Negative); Protein Urine 2+ mg/dL (Negative); Specific Grav Ur 1.017 (1.001-1.035); Urobilinogen Urine Negative mg/dL (<2.0); WBC Urine 31-50 /hpf
[2022-01-13 13:11] VITALS: BP 166/87; PULSE 70; RESP 18; O2SAT 96
[2022-01-14 11:58] LABS: SARS-CoV-2 RNA PCR Negative
== END 2022-01-13 13:10 | disposition home or self-care (01) ==
PROVIDERS: Emergency Provider Emergency Medicine; PCP Nurse Practitioner Family
DX: B34.9 Viral infection, unspecified (principal); N39.0 Urinary tract infection, site not specified; Z20.822 Contact with and (suspected) exposure to COVID-19; E11.22 Type 2 diabetes mellitus with diabetic chronic kidney disease; N18.30 Chronic kidney disease, stage 3 unspecified; Z95.0 Presence of cardiac pacemaker; Z85.51 Personal history of malignant neoplasm of bladder; F17.210 Nicotine dependence, cigarettes, uncomplicated; I49.1 Atrial premature depolarization; I45.10 Unspecified right bundle-branch block
CPT/HCPCS: 36415; 71045; 80053; 81001; 83880; 84484; 85025; 87086; 87088; 93005; 99284; C9803; U0003; U0005

== ENCOUNTER 2022-04-01 09:39 | Inpatient (IN) | payer OTHER, SELFPAY ==
[2022-04-01] VITALS (39 sets, daily range): BP systolic 112–190; BP diastolic 61–129; PULSE 75–86; RESP 13–26; TEMP 36.6–37.1; O2SAT 94–100; BMI 24.2
--- NOTE | ~2022-04-01 | XR_ITS ---
EXAMINATION: XR chest 2V DATE: 04/01/2022 10:16 INDICATION: Dizziness and fever TECHNIQUE: PA and lateral views of the chest are obtained. COMPARISON: 01/13/2022 FINDINGS: The lungs are free of acute opacities. There is no pleural effusion or pneumothorax. The ca rdiomediastinal silhouette is normal. There is moderate thoracic spondylosis. A dual-lead cardiac pac emaker of the left chest wall ends with leads in expected locations. IMPRESSION: 1. No acute cardiopulmonary abnormality. Reviewed, dictated and finalized at location A.
--- NOTE | ~2022-04-01 | CT_ITS ---
EXAMINATION: CT brain wo con INDICATION: Headache and dizziness COMPARISON: 03/05/2021 TECHNIQUE: Standard unenhanced head CT. The dose-length product (DLP) was 529.67 mGy-cm. The mA was a djusted according to patient size. Iterative reconstruction technique was employed. FINDINGS: There is no acute intraparenchymal hemorrhage. No evidence of mass lesion. No evidence of a cute infarction. 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 There is mild periventricular and subcortical hypodensity probably related to sma ll vessel ischemic disease. There is mild prominence of the sulci and ventricles related to cerebral atrophy. Intracranial calcified cerebral atherosclerosis is noted. There are no extra-axial collectio ns. There is no mass effect or midline shift. The orbits and soft tissues are unremarkable. There is mucosal thickening of the paranasal sinuses. IMPRESSION: 1. No acute intracranial abnormality. 2. Age related findings. Reviewed, dictated and finalized at location A.
--- NOTE | ~2022-04-01 | XR_ITS ---
EXAMINATION: XR chest 1V portable INDICATION: Shortness of breath, COVID 19 positive TECHNIQUE: Portable AP chest at 0540 hours COMPARISON: 04/01/2022 FINDINGS: The lungs are hyperinflated but free of acute opacities. There is no pleural effusion or pn eumothorax. The cardiomediastinal silhouette is normal. A dual-lead cardiac pacemaker of the left brayan st wall ends with leads in expected locations. IMPRESSION: 1. No acute cardiopulmonary abnormality. Reviewed, dictated and finalized at location A.
--- NOTE | 2022-04-01 09:51 | ECG_ITS ---
Measurements Intervals [place] Rate: 75 P: -78 MI: 228 QRS: 70 QRSD: 144 T: 45 QT: 409 QTc: 459 Interpretive Statements ELECTRONIC ATRIAL PACEMAKER RIGHT BUNDLE BRANCH BLOCK BASELINE WANDER- II, III, AVR, AVL, AVF ABNORMAL ECG Electronically Signed On 04-01-2022 12:40:26 CDT by Ubaldo Najera D.O.
--- NOTE | 2022-04-01 10:03 | ED.DIZZY ---
HPI - Dizziness General Chief Complaint: Dizziness Stated Complaint: DIZZY Time Seen by Provider: 04/01/22 09:55 History of Present Illness HPI Narrative: 81 y/o male presents to the ER today for complaints of dizziness and generalized weakness. He has been feeling poorly since the weekend. He had feeling of chills on Wednesday, temp was not checked. He has had very poor appetite. He is not eating or drinking very well. He says that the dizziness is room spinning feeling but does not change with position change. Denies any chest pain or shortness of breath. He had cough last week but this is better now. No vomiting or diarrhea. He has a history of CKD stage 3. Related Data Home Medications Medication Instructions Recorded Confirmed meclizine 25 mg PO TID PRN 03/06/21 03/06/21 Allergies Allergy/AdvReac Type Severity Reaction Status Date / Time No Known Allergies Allergy Verified 01/13/22 09:22 Review of Systems Constitutional: Constitutional: Reports chills, Reports fatigue, Denies fever(s) and Reports weakness Eyes: Eyes: Reports no additional eye complaints ENT: Reports dizziness, Denies nasal congestion and Denies sore throat Cardiovascular: Cardiovascular: Denies chest pain Respiratory: Respiratory: Denies chest congestion, Denies cough, Denies dyspnea and Denies wheezing Gastrointestinal: Gastrointestinal: Denies abdominal pain, Denies diarrhea, Denies nausea and Denies vomiting Genitourinary: Genitourinary: Denies hematuria, Denies dysuria and Denies urinary frequency Musculoskeletal: Musculoskeletal: Denies back pain Integumentary/Breasts: Skin/Breast: Denies rash Neurologic: Reports dizziness, Denies headache(s), Denies focal weakness, Denies numbness and Reports weakness Psychiatric: Psychiatric: Denies anxiety and Denies depression Hematologic/Lymphatic: Hematologic/Lymphatic: Reports no additional hematologic/lymphatic complaints Allergic/Immunologic: Allergic/Immunologic: Reports no additional allergic/immunologic complaints [facility] Past Medical History Medical History Bladder cancer Chronic renal failure, stage 3 (moderate) Diabetes type 2, controlled Pacemaker Surgical History Surgical History History of urostomy Family History Family History Sibling Family history of Alzheimer's disease Father Family history of coronary artery disease Social History Social History Smoking packs per day: 1 Smoking cigarettes per day: 20.0 Smoking status: Current every day smoker Tobacco type: cigarettes Alcohol intake: never Alcohol use details: occasional Substance use: never Gender identity (if verbalized by the patient): Male Spiritual care concerns: No Exam Const: General: no acute distress and alert Orientation/consciousness: patient oriented x3 HENMT: Head: normal to inspection Eyes: Conjunctivae: conjunctivae normal Pupils: Equal, round and reactive pupils present EOM: EOMs intact bilaterally Neck: Neck: normal visual inspection Chest: Chest palpation & inspection: normal inspection of the chest Resp: Effort & Inspection: normal respiratory effort Auscultation: clear to auscultation bilaterally Cardio: Rate: regular rate Rhythm: regular rhythm GI: GI Palp: Yes Soft to palpation, No Tenderness to palpation present (GI) and No Guarding due to palpation present (GI) Auscultation: normal bowel sounds : General: Yes no CVA tenderness Back/Spine/Pelvis: Back: no CVA tenderness Skin: General skin exam: normal color Neuro: General: patient oriented x3 and moves all extremities Psych: Mental Status: mental status grossly normal Affect: normal affect Attitude: cooperative Course Course Emergency Course: 1120 Discus
[2022-04-01 10:16] LABS: Basophils Percent Auto 0.5 % (0.2-1.2); Eosinophils Percent Auto 0.3 % (0-4.4); Hematocrit 40.4 % (42.0-52.0); Hemoglobin 13.5 g/dL (14.0-18.0); Immature Granulocyte Absolute 0.01 K/mm3 (0.00-0.031); Immature Granulocyte Percent A 0.2 % (0-0.5); Lymphocytes Absolute Auto 2.87 K/mm3 (0.9-3.2); Lymphocytes Percent Auto 49.7 % (18.3-44.2); Mean Corpuscular HGB Conc 33.4 g/dl (32-36); Mean Corpuscular Hemoglobin 30.6 pg (26-34); Mean Corpuscular Volume 91.6 fl (80-100); Mean Platelet Volume 9.7 fl (7.4-10.4); Monocytes Absolute Auto 0.5 K/mm3 (0.1-0.6); Monocytes Percent Auto 9.2 % (2.6-8.5); Neutrophils Absolute Auto 2.3 K/mm3 (1.3-6.7); Neutrophils Percent Auto 40.1 % (45.5-73.1); Platelet Count Result 168 k/mm3 (150-375); Red Blood Count 4.41 M/mm3 (4.6-6.20); Red Cell Distribution Width 13.6 % (11.5-14.5); White Blood Count 5.8 K/mm3 (4.5-10.0)
[2022-04-01 10:25] LABS: Alanine Aminotransferase 21 U/L (6-50); Albumin Level 4.1 g/dL (3.5-5.1); Alkaline Phosphatase 65 U/L (38-126); Anion Gap 12 mmol/L (8-16); Aspartate Amino Transferase 38 U/L (17-59); Bilirubin,Total 0.3 mg/dL (0.2-1.3); Blood Urea Nitrogen 56 mg/dL (9-20); Calcium 8.5 mg/dL (8.4-10.2); Carbon Dioxide 18 mmol/L (22-30); Chloride 105 mmol/L (98-107); Estimated CRCL calculation 18 ml/min; Estimated Glomerular Filt Rate 24; Glucose 104 mg/dL (65-110); Potassium 4.9 mmol/L (3.4-5.0); Sodium 135 mmol/L (137-145)
[2022-04-01 10:28] LABS: INR 1.1; Prothrombin Time 13.3 Seconds (11.1-14.7)
[2022-04-01 10:36] LABS: Troponin I 0.014 ng/mL (0.000-0.034)
[2022-04-01] MEDS: SODIUM CHLORIDE 0.9% IV 1,000 ML 999 ML IV CONT (10:54)
[2022-04-01 11:33] LABS: Appearance Urine Cloudy (Clear); Bilirubin Urine Negative (Negative); Color Urine Yellow (Yellow); Glucose Urine UA Negative (Negative); Ketones Urine Negative (Negative); Leukocyte Esterase Ur 1+ LEU/UL (Negative); Nitrate Urine Negative (Negative); Protein Urine 2+ mg/dL (Negative); Specific Grav Ur 1.015 (1.001-1.035); Urobilinogen Urine 0.2 mg/dL (<2.0); pH Urine 8.5 (5.0-9.0)
--- NOTE | 2022-04-01 11:59 | PM.IMHP ---
H&P: HPI History of Present Illness Date/Time: 04/01/22 11:59 Merle Escalona is a 81 yo male with medical history of CKD stage 3, bladder cancer s/p ileostomy, pacemaker and diabetes. He presented to the ED for evaluation of dizziness and generally feeling unwell for approximately 2 days. History was obtained from the patient, who is a fair historian. He is primarily [place]an speaking, but does speak and understand Vincentian well. He states the dizziness is persistent, not associated with position or gait changes. He reports chronic meclizine use for dizziness for a long time. He has had associated generalized weakness, anorexia, poor food and water intake for 3 days, and dull headache. He denies fever, chills, abdominal pain, N/V/D, chest pain, shortness of breath, dysuria or flank pain. He has been taking OTC tylenol and meclizine for symptoms without significant improvement in symptoms. He denies cough for me, however, he was noted to have a moist, nonproductive cough during his interview. He denies new medications, recent travel or known sick contacts. In the ED, his vitals were stable and he was afebrile. Labwork was significant for positive rapid SARS-COV2 test, BUN 56, creatinine 2.6, sodium 135, and UA with 1+ leukocytes, 2+ protein, trace bacteria, 21-30 WBC and rare epi cells. EKG showed atrial paced and captured with RBBB unchanged from previous. 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 He was treated with 1 liter NS IV bolus with maintenance fluids and IV Rocephin 1 gram x1. He was referred for observation and management of acute on chronic kidney disease and UTI. Chief Complaint: Dizziness Review of Systems Review of Systems: All systems reviewed & are unremarkable except as noted in HPI and below Constitutional: Constitutional: Reports anorexia, Reports chills, Reports fatigue and Reports weakness Respiratory: Respiratory: Reports cough Neurologic: Reports dizziness, Reports headache(s) (dull) and Reports weakness PMFSH Past Medical History Medical History (Updated 04/01/22 @ 14:21 by Yesica Angulo, BEHAVIOR INTERVENTIONIST) Bladder cancer Chronic renal failure, stage 3 (moderate) Diabetes type 2, controlled Pacemaker Surgical History Surgical History (Updated 04/01/22 @ 13:50 by Yesica Angulo APRN) History of cholecystectomy History of urostomy Family History Family History Sibling Family history of Alzheimer's disease Father Family history of coronary artery disease Social History Social History (Updated 04/01/22 @ 13:51 by Yesica Angulo APRN) Smoking packs per day: 1 Smoking cigarettes per day: 20.0 Years smoked: 50 Smoking pack-years: 50.00 Smoking status: Current every day smoker Tobacco type: cigarettes Alcohol intake: never Alcohol use details: occasional Substance use: never Living arrangements: with family Gender identity (if verbalized by the patient): Male Spiritual care concerns: No Meds Home Medications and Allergies Home Medications Medication Instructions Recorded Confirmed Type meclizine 25 mg PO TID PRN 03/06/21 03/06/21 History cefdinir 300 mg PO Q12H #10 cap 03/07/21 Rx meclizine 25 mg PO TID PRN #30 tablet 03/07/21 Rx midodrine 2.5 mg PO DAILY #30 tablet 03/07/21 Rx ciprofloxacin HCl [Cipro] 500 mg PO Q12H 5 Days #10 tablet 03/13/21 Rx polyethylene glycol 3350 [Miralax] 17 g PO BID #30 ea 03/13/21 Rx cephalexin 500 mg PO Q8H #21 cap 01/13/22 Rx Allergies Allergy/AdvReac Type Severity Reaction Status Date / Time No Known Allergies Allergy Verified 01/13/22 09:22 Vital Signs Vital Signs - 24 hr 04/01/22 09:48 04/01/22 11:18 04/01/22 11:19 Temperature 97.9 F Pulse Rate 86 76 77 Respiratory Rate 20 16 19 Blood Pressure 115/76 154/89 H Pulse Oximetry 95 97 Exam
[2022-04-01 12:01] LABS: Amorphous Sediment Urine Few; Bacteria Urine Trace /hpf; Mucus Urine Rare /lpf; Renal Epithelial Cells Urine Rare /hpf (None Seen); Squamous Epithelial Cell Urine Rare /hpf (Few); WBC Urine 21-30 /hpf
[2022-04-01 12:02] LABS: Triple Phosphate Crystal Urine Present /hpf
[2022-04-01 12:04] LABS: Add Urine Microscopic? YES; Blood Urine Trace-Intact (Negative)
[2022-04-01 12:10] LABS: Influenza A QL RT-PCR Negative (Negative); Influenza B QL RT-PCR Negative (Negative); SARS-CoV-2 RNA PCR Positive
[2022-04-01] MEDS: SODIUM CHLORIDE 0.9% IV 1,000 ML 125 ML IV CONT (13:23)
--- NOTE | 2022-04-01 15:40 | ADMGEN ---
This patient, Merle Escalona, was admitted to [facility] Surg Room 300-02 [id number]. Patient/family oriented to hospital policies and general routines including ID bracelet, bed and alarms, visiting hours, pain management, procedures, bathroom and other care routines, personal items, smoking policy, room service/diet, and visiting hours. Information on how to activate the Rapid Response Team has been discussed. Patient/Family are encouraged to report perceived risks to care and to ask questions if they do not understand what they are told or what they should do.
[2022-04-01 16:45] LABS: Glucose Point of Care 77 mg/dl (65-105)
[2022-04-01 20:22] LABS: Glucose Point of Care 106 mg/dl (65-105)
[2022-04-02] VITALS (10 sets, daily range): BP systolic 114–171; BP diastolic 60–87; PULSE 76–84; RESP 16–18; TEMP 36.4–37.4; O2SAT 95–100
[2022-04-02] MEDS: SODIUM CHLORIDE 0.9% IV 1,000 ML 125 ML IV CONT (05:53)
[2022-04-02 07:12] LABS: Basophils Percent Auto 0.4 % (0.2-1.2); Eosinophils Absolute Auto 0.1 K/mm3 (0-0.3); Eosinophils Percent Auto 1.5 % (0-4.4); Hematocrit 38.2 % (42.0-52.0); Hemoglobin 12.5 g/dL (14.0-18.0); Immature Granulocyte Absolute 0.01 K/mm3 (0.00-0.031); Immature Granulocyte Percent A 0.2 % (0-0.5); Lymphocytes Absolute Auto 2.29 K/mm3 (0.9-3.2); Lymphocytes Percent Auto 50.1 % (18.3-44.2); Mean Corpuscular HGB Conc 32.7 g/dl (32-36); Mean Corpuscular Volume 91.6 fl (80-100); Mean Platelet Volume 9.7 fl (7.4-10.4); Monocytes Absolute Auto 0.4 K/mm3 (0.1-0.6); Neutrophils Absolute Auto 1.8 K/mm3 (1.3-6.7); Neutrophils Percent Auto 38.8 % (45.5-73.1); Platelet Count Result 151 k/mm3 (150-375); Red Blood Count 4.17 M/mm3 (4.6-6.20); Red Cell Distribution Width 13.5 % (11.5-14.5); White Blood Count 4.6 K/mm3 (4.5-10.0)
--- NOTE | 2022-04-02 07:14 | PM.IMPN ---
Progress Note: A&P Assessment and Plan (1) Acute kidney injury superimposed on chronic kidney disease: Code(s): N17.9 - Acute kidney failure, unspecified; N18.9 - Chronic kidney disease, unspecified Status: Acute Assessment and Plan: Likely secondary to acute dehydration. Improving, but still elevated from baseline (baseline BUN 20, creatinine 1.5-1.6, GFR 45). TCO2 16 today suggesting acidosis. Continue IV hydration and change to sterile water w/bicarb @75 mL/hour. Continue to trend renal function daily. Monitor I & O. Avoid nephrotoxic agents. (2) Acute dehydration: Code(s): E86.0 - Dehydration Status: Acute Assessment and Plan: Secondary to poor oral intake x 3 days. Continue IV hydration as above. (3) Dizziness: Code(s): R42 - Dizziness and giddiness Status: Acute Assessment and Plan: Presumed secondary to hypovolemia. Improving. CT head shows no acute changes and no focal deficits noted on exam. Check orthostatic vitals. Continue PRN meclizine 25 mg Q8 hr Fall precautions. (4) COVID-19 determined by clinical diagnostic criteria: Code(s): U07.1 - COVID-19 Status: Acute Assessment and Plan: Rapid test positive. Prior vaccination with 2 doses last year. No supplemental O2 needs at this time. PRN albuterol HFA Q 6 hours PRN for shortness of breath or wheezing. Hold Remdesivir and dexamethasone for now as he is not hypoxemic. Lovenox SQ daily for VTE prophylaxis adjust per renal function Continue disease specific isolation Repeat Chest x-ray tomorrow morning. Booster vaccination recommended after discharge and feeling better. (5) Generalized weakness: Code(s): R53.1 - Weakness Status: Acute Assessment and Plan: Secondary to UTI, dehydration, and SARS-COV2 positive. Continue current treatment. PT/OT consult. (6) Urinary tract infection: Qualifiers: Hematuria presence: without hematuria Urinary tract infection type: site unspecified Qualified Code(s): N39.0 - Urinary tract infection, site not specified Code(s): N39.0 - Urinary tract infection, site not specified Status: Acute Assessment and Plan: Patient with c/o suprapubic tenderness and subjective chills noted in ED record. No flank pain or tenderness today. Afebrile. Continue Rocephin 1 gram Q24 hours x 5 days and adjust per urine culture results. 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 A1c 5.8%, appears well-controlled with diet. Accu-checks AC/HS with lispro low dose sliding scale insulin per protocol while inpatient. (8) Tobacco abuse: Code(s): Z72.0 - Tobacco use Status: Acute Assessment and Plan: Counseled to quit. Nicotine patch ordered, but patient refusing. Time Spent With Patient Time with patient: 15 - 25 minutes (50% time for patient education. ) Subjective Date/time seen: Patient found lying in bed. He reports his dizziness is improved. No nausea, vomiting, diarrhea, abd pain, flank pain, chest pain or SOB. 04/02/22 07:14 Review of Systems Review of Systems: All systems reviewed & are unremarkable except as noted in HPI and below Respiratory: Respiratory: Reports cough (nonproductive) Neurologic: Reports dizziness (improved) Exam Const: General: no acute distress Orientation/consciousness: patient oriented x3 HENMT: Mouth: Yes moist mucous membranes Eyes: General: appearance normal, both eyes and all related structures Sclera: sclerae normal Pupils: E
[2022-04-02 07:15] LABS: Hemoglobin A1C 5.8 % (<5.7)
[2022-04-02 07:26] LABS: Albumin Level 3.6 g/dL (3.5-5.1); Anion Gap 8 mmol/L (8-16); Blood Urea Nitrogen 48 mg/dL (9-20); Calcium 7.5 mg/dL (8.4-10.2); Carbon Dioxide 16 mmol/L (22-30); Chloride 110 mmol/L (98-107); Estimated CRCL calculation 24 ml/min; Estimated Glomerular Filt Rate 32; Glucose 82 mg/dL (65-110); Phosphorus 3.7 mg/dL (2.5-4.5); Sodium 134 mmol/L (137-145)
[2022-04-02 08:27] LABS: Glucose Point of Care 83 mg/dl (65-105)
[2022-04-02] MEDS: SODIUM BICARBONATE 8.4% 100 MEQ in WATER, STERILE FOR INJECTION 1,000 ML 75 MEQ IV CONT (09:10)
[2022-04-02] MEDS: ENOXAPARIN 30 MG/0.3 ML SYRINGE SUB-Q (09:10)
[2022-04-02 12:01] LABS: Glucose Point of Care 99 mg/dl (65-105)
[2022-04-02 17:14] LABS: Glucose Point of Care 104 mg/dl (65-105)
[2022-04-02 21:38] LABS: Glucose Point of Care 103 mg/dl (65-105)
[2022-04-03] VITALS (11 sets, daily range): BP systolic 80–188; BP diastolic 49–95; PULSE 77–83; RESP 16–20; TEMP 36.2–37; O2SAT 96–97
--- NOTE | 2022-04-03 02:19 | PC.NURSE ---
0210 BP 188/95 repeat BP 184/90, place call to DR High. New order received.
[2022-04-03] MEDS: LABETALOL HCL INJ 100 MG/20 ML VIAL 10 MG IV PUSH (02:32)
[2022-04-03] MEDS: MECLIZINE HCL 25 MG TABLET PO ×2 (02:39→13:01)
[2022-04-03] MEDS: SODIUM BICARBONATE 8.4% 100 MEQ in WATER, STERILE FOR INJECTION 1,000 ML 75 MEQ IV CONT (04:38)
[2022-04-03 06:12] LABS: Hematocrit 38.6 % (42.0-52.0); Mean Corpuscular HGB Conc 33.7 g/dl (32-36); Mean Corpuscular Volume 89.1 fl (80-100); Mean Platelet Volume 9.6 fl (7.4-10.4); Platelet Count Result 150 k/mm3 (150-375); Red Blood Count 4.33 M/mm3 (4.6-6.20); Red Cell Distribution Width 13.2 % (11.5-14.5); White Blood Count 4.2 K/mm3 (4.5-10.0)
[2022-04-03 06:19] LABS: Anion Gap 9 mmol/L (8-16); Blood Urea Nitrogen 41 mg/dL (9-20); Carbon Dioxide 23 mmol/L (22-30); Chloride 103 mmol/L (98-107); Estimated CRCL calculation 26 ml/min; Estimated Glomerular Filt Rate 36; Glucose 96 mg/dL (65-110); Potassium 4.4 mmol/L (3.4-5.0); Sodium 135 mmol/L (137-145)
--- NOTE | 2022-04-03 07:25 | PM.IMPN ---
Progress Note: A&P Assessment and Plan (1) Acute kidney injury superimposed on chronic kidney disease: Code(s): N17.9 - Acute kidney failure, unspecified; N18.9 - Chronic kidney disease, unspecified Status: Acute Assessment and Plan: Likely secondary to acute dehydration. Improving and near baseline. Good urine output and appears euvolemic. TCO2 16 within normal limits. Stop IVF. Continue to trend renal function daily. Monitor I & O. Avoid nephrotoxic agents. (2) Orthostatic hypotension: Code(s): I95.1 - Orthostatic hypotension Status: Acute Assessment and Plan: See vitals documentation. SBP supine to standing drops from 130 to 70s; HR change not documented by nursing. Give additional 500 cc NS bolus. Repeat orthostatics. RONALD hose ordered but patient is refusing to wear them. Start midodrine 2.5 mg TID with hold for supine hypertension SBP>170. (3) Acute dehydration: Code(s): E86.0 - Dehydration Status: Acute Assessment and Plan: Secondary to poor oral intake x 3 days. Resolved. (4) COVID-19 determined by clinical diagnostic criteria: Code(s): U07.1 - COVID-19 Status: Acute Assessment and Plan: Rapid test positive. Prior vaccination with 2 doses last year. No supplemental O2 needs at this time. PRN albuterol HFA Q 6 hours PRN for shortness of breath or wheezing. Hold Remdesivir and dexamethasone for now as he is not hypoxemic. Lovenox SQ daily for VTE prophylaxis adjust per renal function Continue disease specific isolation Repeat Chest x-ray without acute process. Booster vaccination recommended after discharge and feeling better. (5) Generalized weakness: Code(s): R53.1 - Weakness Status: Resolved Assessment and Plan: Secondary to UTI, dehydration, and SARS-COV2 positive. Continue current treatment. PT/OT consult. Patient is at baseline, however, since he lives alone we will order home health services at discharge. (6) Urinary tract infection: Qualifiers: Hematuria presence: without hematuria Urinary tract infection type: site unspecified Qualified Code(s): N39.0 - Urinary tract infection, site not specified Code(s): N39.0 - Urinary tract infection, site not specified Status: Resolved Assessment and Plan: Urine culture mixed jorge luis. Stop Rocephin. (7) Diabetes mellitus: Qualifiers: Diabetes mellitus complication status: without complication Diabetes mellitus penitentiary insulin use: without director news use Diabetes mellitus type: type 2 Qualified Code(s): E11.9 - Type 2 diabetes mellitus without complications Code(s): E11.9 - Type 2 diabetes mellitus without complications Status: Chronic Assessment and Plan: Noted in patient history, however, he is not currently on medications for diabetes. A1c 5.8%, appears well-controlled with diet. Accu-checks AC/HS with lispro low dose sliding scale insulin per protocol while inpatient. (8) Tobacco abuse: Code(s): Z72.0 - Tobacco use Status: Acute Assessment and Plan: Counseled to quit. Nicotine patch ordered, but patient refusing. Subjective Date/time seen: Patient found sitting up in bed. He reports continued dizziness with position changes. He still feels weak and concerned about going home due to this. He lives alone, but his son lives nearby and helps out. Orthostatic vitals significantly positive with lying to standing SBP dropping from 130 to 70s. 04/03/22 07:25 Review of Systems Review of Systems: All systems reviewed & are unremarkable except as noted in HPI and below (below) Neurologic: Reports dizziness Exam Const: General: no acute distress Orientation/consciousness: patient oriented x3 HENMT: Head: normal to inspection Ears: hearing grossly normal bilaterally General nose exam: Normal external nose present Mouth: Yes Normal oral and palatal mucosa present Eyes: General:
[2022-04-03] MEDS: ENOXAPARIN 30 MG/0.3 ML SYRINGE SUB-Q (08:17)
[2022-04-03 08:34] LABS: Glucose Point of Care 102 mg/dl (65-105)
[2022-04-03 12:40] LABS: Glucose Point of Care 88 mg/dl (65-105)
[2022-04-03] MEDS: SODIUM CHLORIDE 0.9% IV 500 ML IV CONT (13:01)
[2022-04-03] MEDS: MIDODRINE HCL 2.5 MG TABLET PO ×2 (13:17→17:23)
[2022-04-03 16:58] LABS: Glucose Point of Care 111 mg/dl (65-105)
[2022-04-03] MEDS: SODIUM CHLORIDE 0.9% IV 1,000 ML 75 ML IV CONT (17:23)
[2022-04-03 20:48] LABS: Glucose Point of Care 124 mg/dl (65-105)
[2022-04-04] VITALS: BP 138/84; PULSE 77; RESP 18; TEMP 36.4; O2SAT 98
[2022-04-04 04:00] VITALS: BP 163/86; PULSE 77; RESP 18; TEMP 36.3; O2SAT 96
[2022-04-04 07:40] LABS: Hematocrit 39.3 % (42.0-52.0); Hemoglobin 12.7 g/dL (14.0-18.0); Immature Platelet Fraction Pct 3.4 % (0.9-11.2); Mean Corpuscular HGB Conc 32.3 g/dl (32-36); Mean Corpuscular Volume 92.9 fl (80-100); Mean Platelet Volume 9.9 fl (7.4-10.4); Platelet Count Result 148 k/mm3 (150-375); Red Blood Count 4.23 M/mm3 (4.6-6.20); Red Cell Distribution Width 13.2 % (11.5-14.5); White Blood Count 4.3 K/mm3 (4.5-10.0)
[2022-04-04 07:59] LABS: Glucose Point of Care 97 mg/dl (65-105)
[2022-04-04 07:59] LABS: Anion Gap 8 mmol/L (8-16); Blood Urea Nitrogen 31 mg/dL (9-20); Carbon Dioxide 24 mmol/L (22-30); Chloride 106 mmol/L (98-107); Estimated CRCL calculation 30 ml/min; Estimated Glomerular Filt Rate 42; Glucose 93 mg/dL (65-110); Potassium 4.7 mmol/L (3.4-5.0); Sodium 138 mmol/L (137-145)
[2022-04-04 08:00] VITALS: BP 159/63; PULSE 46; RESP 16; TEMP 35.9; O2SAT 98
[2022-04-04] MEDS: MIDODRINE HCL 2.5 MG TABLET PO ×2 (08:30→14:24)
[2022-04-04] MEDS: ENOXAPARIN 30 MG/0.3 ML SYRINGE SUB-Q (08:30)
[2022-04-04] MEDS: MECLIZINE HCL 25 MG TABLET PO ×2 (08:35→14:24)
[2022-04-04 11:00] VITALS: BP 100/81; BP 82/60
[2022-04-04 11:15] VITALS: BP 165/87; BP 93/57
[2022-04-04 12:05] LABS: Glucose Point of Care 99 mg/dl (65-105)
--- NOTE | 2022-04-04 14:20 | PM.DS ---
DS: Admitting Diagnosis Discharge Date 04/04/2022 1531 Admitting Diagnosis Acute kidney injury superimposed on chronic kidney disease Acute dehydration Dizziness COVID-19 determined by clinical diagnostic criteria Generalized weakness Urinary tract infection Type 2 diabetes mellitus Tobacco abuse DS: Discharge Diagnosis Discharge Diagnosis (1) Acute kidney injury superimposed on chronic kidney disease: Code(s): N17.9 - Acute kidney failure, unspecified; N18.9 - Chronic kidney disease, unspecified Status: Resolved (2) Orthostatic hypotension: Code(s): I95.1 - Orthostatic hypotension Status: Acute (3) Acute dehydration: Code(s): E86.0 - Dehydration Status: Resolved (4) COVID-19 determined by clinical diagnostic criteria: Code(s): U07.1 - COVID-19 Status: Acute (5) Bacteriuria, chronic: Code(s): R82.71 - Bacteriuria Status: Acute (6) Generalized weakness: Code(s): R53.1 - Weakness Status: Resolved (7) Tobacco abuse: Code(s): Z72.0 - Tobacco use Status: Acute (8) Diabetes mellitus: Qualifiers: Diabetes mellitus type: type 2 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 He presented to the ED for evaluation of dizziness and generally feeling unwell for approximately 2 days prior to admission. He reported the dizziness was persistent, not associated with position or gait changes. He chronically uses meclizine for dizziness for a long time. He had associated generalized weakness, anorexia, poor food and water intake for 3 days, and dull headache. He denied fever, chills, abdominal pain, N/V/D, chest pain, shortness of breath, dysuria or flank pain. He was taking OTC tylenol and meclizine for symptoms without significant improvement. He denied cough, however, he was noted to have a moist, nonproductive cough during his interview. No new medications, recent travel or known sick contacts. In the ED, his vitals were stable and he was afebrile. Labwork was significant for positive rapid SARS-COV2 test, BUN 56, creatinine 2.6, sodium 135, and UA with 1+ leukocytes, 2+ protein, trace bacteria, 21-30 WBC and rare epi cells. EKG showed atrial paced and captured with RBBB unchanged from previous. 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 He was treated with 1 liter NS IV bolus with maintenance fluids and IV Rocephin 1 gram x1. He was referred for observation on the medical floor and placed in [id number] isolation. He was continued on IV hydration and renal function was trended. Rocephin 1 gram IV Q24 hours was continued until urine culture demonstrated mixed jorge luis, suggesting contamination. He received approximately 2 doses of antibiotics. His renal function improved, however on hospital day 2, his TCO2 was 16 suggesting acidosis related to renal disease. IV fluids were changed to sterile water with 100 mEQ bicarb. His renal function improved and urine output via urostomy was adequate, however, the patient still reported generalized weakness and significant dizziness, especially with standing. Repeat orthostatic vitals were significantly positive with SBP dropping to 70s to 80s/50s with standing. He received a 500 cc bolus with some improvement in orthostatic BP and was started on low dose midodrine 2.5 mg Q8 hours, which the patient reported taking 3 years prior.
== END 2022-04-04 16:54 | disposition home health service (06) | DRG 682 ==
LOC: ANHED 11:33 → ANH3MEDSUR 14:33
PROVIDERS: Admitting Provider Family Medicine; Emergency Provider Nurse Practitioner Family; PCP Nurse Practitioner Family; Visit Provider Nurse Practitioner Family
DX: N17.9 Acute kidney failure, unspecified (principal); U07.1 COVID-19; E87.2 Acidosis; E11.22 Type 2 diabetes mellitus with diabetic chronic kidney disease; N18.30 Chronic kidney disease, stage 3 unspecified; I95.1 Orthostatic hypotension; R82.71 Bacteriuria; E86.1 Hypovolemia; E86.0 Dehydration; F17.210 Nicotine dependence, cigarettes, uncomplicated; I45.10 Unspecified right bundle-branch block; Z95.0 Presence of cardiac pacemaker; Z85.51 Personal history of malignant neoplasm of bladder; Z90.49 Acquired absence of other specified parts of digestive tract
CPT/HCPCS: 36415; 70450; 71045; 71046; 80048; 80053; 80069; 81001; 82948; 83036; 84484; 85025; 85027; 85055; 85610; 85730; 87086; 87088; 87502; 93005; 96361; 96365; 96366; 96367; 96372; 96375; 96376; 97161; 97165; 99285; A9270; C9803; G0378; J0696; J1650; J7030; J7040; U0003; U0005

== ENCOUNTER 2023-01-07 21:08 | Observation (INO) | payer OTHER, SELFPAY ==
[2023-01-07] VITALS (8 sets, daily range): BP systolic 144–153; BP diastolic 57–113; PULSE 77–99; RESP 19–27; TEMP 36.8; O2SAT 96–100
--- NOTE | ~2023-01-07 | XR_ITS ---
EXAMINATION: XR chest 2V 01/07/2023 22:26 INDICATION: Shortness of breath PROCEDURE: 2 view chest COMPARISON: Comparison to multiple prior studies sequentially, with oldest reviewed study dated 03/12. FINDINGS: The lungs are clear. The cardiomediastinal silhouette is within normal limits. There are no pleural effusions. There is no pneumothorax suspected. Pacemaker leads are stable. The lungs are hyperinflated which is consistent with, but not diagnostic of chronic obstructive pulmonary disease. IMPRESSION: 1: NO ACUTE CARDIOPULMONARY DISEASE. Reviewed, dictated and finalized at location A. RNAL COMBUSTION ENGINE INSPECTOR
--- NOTE | ~2023-01-07 | CT_ITS ---
EXAMINATION: CTA chest PE protocol DATE: 01/08/2023 03:34 INDICATION: Shortness of breath. TECHNIQUE: Computed tomography angiography (CTA) of the chest was performed with 100 mL Omnipaque-350 intravenous contrast timed to evaluate the pulmonary arteries. Coronal maximum intensity projection 3D-reconstructions were created by the technologist. Automated exposure control and iterative reconst ruction technique were employed. The dose-length product was 348.98 mGy-cm. COMPARISON: Chest CT 03/12/21 FINDINGS: There is mild emphysema. There is mild scarring at the lung apices. There is a stable 7 mm nodule in right middle lobe. There is a new 6 mm nodule in right middle lobe. There is a peripheral 3 mm nodule in left upper lobe. There is a 5 mm nodule in right upper lobe without change. There is mu cous plugging in the lower lobes. No pleural effusion. The heart size is normal. There are coronary a rtery calcifications. There is a left chest wall pacer with leads in the right atrium and right ventr icle. No pericardial effusion. There is no pulmonary embolus. There are changes of cholecystectomy. T here is mild atrophy of right kidney and moderate atrophy of left kidney. There is gas in the right r enal collecting system. There is a small sliding hiatal hernia. There is mild thoracic spondylosis. IMPRESSION: 1. No pulmonary embolus. 2. Mild emphysema. 3. Pulmonary nodules, probably benign. Noncontrast low-dose chest CT is recommended in 6 months. 4. Gas in the right renal collecting system, which may be secondary to recent instrumentation. Reviewed, dictated and finalized at location A. S CONSULTANT IMPRESSION: 1. No pulmonary embolus. 2. Mild emphysema. 3. Pulmonary nodules, probably benign. Noncontrast low-dose chest CT is recomme nded in 6 months. 4. Gas in the right renal collecting system, which may be secondary to recent i nstrumentation.
--- NOTE | 2023-01-07 21:14 | ECG_ITS ---
Measurements Intervals [place] Rate: 77 P: 269 MN: 247 QRS: 69 QRSD: 147 T: 35 QT: 419 QTc: 475 Interpretive Statements ELECTRONIC ATRIAL PACEMAKER ELECTRONIC VENTRICULAR PACEMAKER WITH VENTRICULAR PSEUDO FUSION RIGHT BUNDLE BRANCH BLOCK ABNORMAL RHYTHM ECG COMPARED TO ECG 04/01/2022 09:54:14 NO SIGNIFICANT CHANGES Electronically Signed On 01-08-2023 15:17:37 EXTRACORPOREAL TECHNICIAN by Calvin He M.D.
[2023-01-07] MEDS: IPRATROPIUM BR 0.02% INH SOLN 0.5 MG/2.5 ML VIAL 2 MG INHALATION (21:29)
[2023-01-07] MEDS: ALBUTEROL SULFATE NEB 2.5 MG/3 ML INH 10 MG INHALATION (21:29)
[2023-01-07 21:32] LABS: Basophils Absolute Auto 0.1 K/mm3 (0.0-0.1); Basophils Percent Auto 0.7 % (0.2-1.2); Eosinophils Absolute Auto 0.6 K/mm3 (0-0.3); Eosinophils Percent Auto 5.4 % (0-4.4); Hematocrit 38.1 % (42.0-52.0); Hemoglobin 12.4 g/dL (14.0-18.0); Immature Granulocyte Absolute 0.03 K/mm3 (0.00-0.031); Immature Granulocyte Percent A 0.3 % (0-0.5); Lymphocytes Absolute Auto 2.54 K/mm3 (0.9-3.2); Lymphocytes Percent Auto 23.8 % (18.3-44.2); Mean Corpuscular HGB Conc 32.5 g/dl (32-36); Mean Corpuscular Hemoglobin 30.7 pg (26-34); Mean Corpuscular Volume 94.3 fl (80-100); Mean Platelet Volume 9.2 fl (7.4-10.4); Monocytes Absolute Auto 0.8 K/mm3 (0.1-0.6); Monocytes Percent Auto 7.9 % (2.6-8.5); Neutrophils Absolute Auto 6.6 K/mm3 (1.3-6.7); Neutrophils Percent Auto 61.9 % (45.5-73.1); Platelet Count Result 240 k/mm3 (150-375); Red Blood Count 4.04 M/mm3 (4.6-6.20); Red Cell Distribution Width 13.5 % (11.5-14.5); White Blood Count 10.7 K/mm3 (4.5-10.0)
[2023-01-07] MEDS: MAGNESIUM SULF 2 GM/WATER 50ML 2 GM/50 ML BAG IVPB (21:37)
[2023-01-07] MEDS: methylPREDNISolone SOD SUCC 125 MG VIAL IV PUSH (21:37)
[2023-01-07 21:44] LABS: Alanine Aminotransferase 17 U/L (6-50); Albumin Level 4.4 g/dL (3.5-5.1); Alkaline Phosphatase 72 U/L (38-126); Anion Gap 5 mmol/L (8-16); Aspartate Amino Transferase 25 U/L (17-59); Bilirubin,Total 0.5 mg/dL (0.2-1.3); Blood Urea Nitrogen 41 mg/dL (9-20); Calcium 8.5 mg/dL (8.4-10.2); Carbon Dioxide 27 mmol/L (22-30); Chloride 103 mmol/L (98-107); Estimated CRCL calculation 25 ml/min; Estimated Glomerular Filt Rate 34; Glucose 176 mg/dL (65-110); Potassium 4.3 mmol/L (3.4-5.0); Sodium 135 mmol/L (137-145)
[2023-01-07 21:58] LABS: Lactic Acid Reflex 0.9 mmol/L (0.7-2.0)
[2023-01-07 22:10] LABS: D Dimer 0.79 ug/mL (<0.48)
--- NOTE | 2023-01-07 22:20 | ED.GENADULT ---
HPI - General Adult General Chief complaint: Shortness of Breath/Dyspnea Stated complaint: DIFFICULTY IN BREATHING Time Seen by Provider: 01/07/23 21:26 History of Present Illness HPI narrative: 82-year-old male with history presenting with difficulty breathing. Patient said that he developed URI symptoms 3 days ago. Since then he has been had been coming progressively short of breath. He does not have any inhalers at home. He has had a productive cough with clear sputum. Denies fever, chills, chest pain, abdominal pain, nausea vomiting or diarrhea. Related Data Home Medications Medication Instructions Recorded Confirmed meclizine 25 mg tablet 25 mg PO TID PRN Dizziness 03/06/21 04/01/22 Acetaminophen Extra Strength 650 mg PO Q6H PRN fever/pain 04/01/22 04/02/22 Allergies Allergy/AdvReac Type Severity Reaction Status Date / Time No Known Allergies Allergy Verified 01/07/23 23:03 [facility] Past Medical History Medical History Bladder cancer Chronic renal failure, stage 3 (moderate) Diabetes type 2, controlled Pacemaker Surgical History Surgical History History of cholecystectomy History of urostomy Family History Family History Sibling Family history of Alzheimer's disease Father Family history of coronary artery disease Social History Social History Smoking packs per day: 1 Smoking cigarettes per day: 20.0 Years smoked: 50 Smoking pack-years: 50.00 Smoking status: Current every day smoker Alcohol intake: never Alcohol use details: occasional Substance use: never Living arrangements: with family Gender identity (if verbalized by the patient): Male Spiritual care concerns: No Exam Narrative: APPEARANCE: No apparent distress. Head: atraumatic. EYES: EOMI, NOSE: Atraumatic NECK: Trachea midline RESPIRATORY: Mildly increased work of breathing, diffuse expiatory wheezing in all frausto CARDIOVASCULAR: RRR, no peripheral edema ABDOMINAL: Non-distended, soft nontender no guarding rebound MUSCULOSKELETAl: No obvious deformities NEURO: Alert. Moving 4/4 extremities SKIN:: Warm, dry. Normal color PSYCHIATRIC: Normal affect Course Vital Signs Vital signs: Vital Signs Temperature 98.2 F 01/07/23 21:11 Pulse Rate 77 01/07/23 21:11 Respiratory Rate 20 01/07/23 21:11 Blood Pressure 144/113 H 01/07/23 21:11 Pulse Oximetry 100 01/07/23 21:11 Oxygen Delivery Nasal Cannula 01/07/23 21:11 Oxygen Flow Rate 5 01/07/23 21:11 Temperature 98.2 F 01/07/23 21:11 Pulse Rate 90 01/08/23 02:33 Respiratory Rate 15 01/08/23 02:33 Blood Pressure 148/72 H 01/08/23 02:33 Pulse Oximetry 93 01/08/23 02:33 Oxygen Delivery Nasal Cannula 01/07/23 21:13 Oxygen Flow Rate 5 01/07/23 21:13 Medical Decision Making MDM Narrative Medical decision making narrative: -Presentation: is an 82-year-old gentleman presenting to the ED with difficulty breathing after URI. physical exam shows scattered wheezing in all frausto. Patient given hour long breathing treatment with Solu-Medrol and magnesium. Chest x-ray lab work and EKG will be obtained. patient was saturating in the high 80s on room air. He is placed on 2 L nasal cannula. -DDX includes but is not limited to: bronchitis, viral syndrome, pneumonia, ACS -Co-morbidities complicating care: advanced age, pacemaker -Social determinants of health: patient lives with his son, -External Chart Review: none -Hx from independent Sources: none -Discussion of Management/Consultants: none -Independent interpretation of studies: Independent EKG interpretation: Rhythm [ paste], Rate [85], [place] -[normal], [place] -[normal], QRS [ wide], QTC [normal], T waves -[negative for concerning inversion
[2023-01-07 22:31] LABS: Troponin I 0.013 ng/mL (0.000-0.034)
[2023-01-07] MEDS: SODIUM CHLORIDE 0.9% IV 1,000 ML 999 ML IV CONT (22:33)
[2023-01-07 22:40] LABS: Influenza A QL RT-PCR Negative (Negative); Influenza B QL RT-PCR Negative (Negative); RSV RNA, RT-PCR Negative (Negative); SARS-CoV-2 RNA PCR Negative
[2023-01-07] MEDS: ONDANSETRON INJ 4 MG/2 ML VIAL IV PUSH (23:20)
--- NOTE | 2023-01-07 23:54 | ECG_ITS ---
Measurements Intervals [place] Rate: 85 P: RI: 0 QRS: 54 QRSD: 156 T: 16 QT: 438 QTc: 523 Interpretive Statements SINUS RHYTHM WITH FIRST-DEGREE AV BLOCK ELECTRONIC VENTRICULAR PACEMAKER WITH PSEUDO FUSION ABNORMAL RHYTHM ECG COMPARED TO ECG 01/07/2023 21:17:47 INTRINSIC SINUS RHYTHM REPLACES ATRIAL PACING Electronically Signed On 01-08-2023 15:20:34 [employer] by Calvin He M.D.
--- NOTE | 2023-01-07 23:54 | PC.NURSE ---
Notified MD Cobos of patient having CP. non radiating. repeat EKG obtained at this time.
[2023-01-08] VITALS (37 sets, daily range): BP systolic 104–154; BP diastolic 41–134; PULSE 75–110; RESP 13–26; TEMP 36.2–37; O2SAT 93–100; BMI 25.0
[2023-01-08 04:31] LABS: Troponin I 0.054 ng/mL (0.000-0.034)
[2023-01-08] MEDS: ASPIRIN 81 MG CHEWABLE TABLET 324 MG PO (05:01)
--- NOTE | 2023-01-08 06:43 | ADMGEN ---
This patient, Merle Escalona, was admitted to IMU Room 200-01. Patient/family oriented to hospital policies and general routines including ID bracelet, bed and alarms, visiting hours, pain management, procedures, bathroom and other care routines, personal items, smoking policy, room service/diet, and visiting hours. Information on how to activate the Rapid Response Team has been discussed. Patient/Family are encouraged to report perceived risks to care and to ask questions if they do not understand what they are told or what they should do.
[2023-01-08 08:58] LABS: Troponin I 0.364 ng/mL (0.000-0.034)
--- NOTE | 2023-01-08 09:22 | ECG_ITS ---
Measurements Intervals [place] Rate: 78 P: 263 HI: 271 QRS: 48 QRSD: 148 T: -5 QT: 439 QTc: 500 Interpretive Statements ELECTRONIC ATRIAL PACEMAKER RIGHT BUNDLE BRANCH BLOCK [120+ ms QRS DURATION, UPRIGHT V1, 40+ ms S IN I/aVL/V4/V5/V6] COMPARED TO ECG 01/07/2023 23:59:12 NO SIGNIFICANT CHANGE Electronically Signed On 01-08-2023 15:26:06 DRUPAL WEB DEVELOPER by Calvin He M.D.
[2023-01-08] MEDS: ACETAMINOPHEN 500 MG TABLET 1000 MG PO (11:06)
[2023-01-08] MEDS: DOCUSATE SODIUM 100 MG CAPSULE PO (11:06)
--- NOTE | 2023-01-08 14:23 | PM.CNCAR ---
Assessment and Plan Assessment and plan (1) Troponin I above reference range: Code(s): R77.8 - Other specified abnormalities of plasma proteins Status: Acute Plan This is an 82-year-old gentleman with a very modest troponin elevation which I believe is related to the hypoxemia with which he presented to the hospital and likely was related to what appears to be relatively severe chronic lung disease by chest x-ray with ongoing history of longstanding cigarette smoking. I do not believe he needs a cardiac or ischemic workup while he is in the hospital he can be discharged for at the discretion of the primary team. His pacemaker device should be followed up by his established senior solutions engineer which is currently in [place]. I do have concerns that his ventricular lead is unlikely to be performing properly since it is in a very unusual locate however that I believe his bed a chronic issue from discussing with him today and that is not something we will attend to here at this hospital as we have not been involved following this device which has been implanted for 7 or 8 years at this point Calvin He MD [facility] History of Present Illness History of Present Illness Consult date/time: 01/08/23 14:23 Reason For Visit: DIFFICULTY IN BREATHING Narrative: This is an 82-year-old man I am seeing today at the request of the hospitalist because of elevation of his troponin level that was drawn following admission to the hospital yesterday evening. The patient was brought to the emergency room here by ambulance because he was having some shortness of breath and coughing that began 3 or 4 days before coming in. This is a gentleman who has a with a were who lives with his son in this area and receives his medical care elsewhere. He states that he was noticing symptoms coughing mostly nonproductive sometimes there was some clear looking sputum he was not really having any fever or chills. He did feel like he was short of breath getting worse for the last couple of days and ultimately called the ambulance and he was brought here to the emergency room. It was noticed on arrival his oxygen saturations were low in the mid 80s. He was treated with bronchodilators and steroids and troponin levels were sampled initially was normal and then betzaida 2.0 1 and then 2.3. The patient's electrocardiogram shows evidence of sinus activity with a lot of atrial ectopics and some atrial pacing. Does not have any evidence of an acute current of injury on any of his electrocardiograms and he is not known to have coronary artery disease. He is feeling relatively well this afternoon seated in bed watching television. According to the chart the hospitalists have not yet seen him following admission last night. I am seeing him because of this troponin elevation. 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 about 7 or 8 years ago when he was living up there. He his stay showed a senior solutions engineer in that community was following him because of asymptomatic Reddy arrhythmias he does not recall having a syncopal episode but he was told when his pulse rate got down into the 40s he required a pacemaker implant. He does not remember there being difficulty with 1 of the leads and that bite have been revised following implant. He is now following with a senior solutions engineer of [facility] in [place]. He saw his senior solutions engineer there within the last 1-2 months and was told that his device is functioning normally. Upon review of his chest x-ray it is very strange that his ventricular lead is in a very unusual position. It appears to be in the base of the right ventricle probably not imbedded in the any segment of the right ventricular myocardium. Despite this the patient was told he says recently by his senior solutions engineer that his device is functionin
--- NOTE | 2023-01-08 15:31 | PM.IMHP ---
H&P: HPI History of Present Illness Date/Time: 01/08/23 15:31 Chief Complaint: Short of breath Narrative: This is an 82-year-old man with a history of COPD, tobacco dependence, brought to the emergency room here by ambulance because he was having some shortness of breath and coughing that began 3 or 4 days before coming in.? he has symptoms coughing mostly nonproductive sometimes there was some clear looking sputum he was not really having any fever or chills.? He did feel like he was short of breath getting worse for the last couple of days on arrival his oxygen saturations were low in the mid 80s.? He was treated with bronchodilators and steroids and troponin levels were sampled initially was normal and then betzaida 2.0 1 and then 2.3.? The patient's electrocardiogram shows evidence of sinus activity with a lot of atrial ectopics and some atrial pacing.? no evidence of an acute injury on a electrocardiograms. not known to have coronary artery disease.?His chest x-ray also shows evidence of advanced emphysema/COPD he smoked for many years and continues to smoke and has been smoking for about 60 years. In ED, patient was found have a leukocytosis, elevated BUN and creatinine above baseline. CT of the chest shows no PE PMFSH Past Medical History Medical History Bladder cancer Chronic renal failure, stage 3 (moderate) Diabetes type 2, controlled Pacemaker Surgical History Surgical History History of cholecystectomy History of urostomy Family History Family History Sibling Family history of Alzheimer's disease Father Family history of coronary artery disease Social History Social History Smoking packs per day: 1 Smoking cigarettes per day: 20.0 Years smoked: 52 Smoking pack-years: 52.00 Smoking status: Current every day smoker Tobacco type: cigarettes Additional smoking assessment comments: down from 4 packs a day. Alcohol intake: never Alcohol use details: occasional Substance use: never Lack of Transportation: No Lack of Food: Never True Current Housing: I Have Housing Concerned About Future Housing: No Difficulty Paying Gas/Electric Bills: No Difficulty Paying for Meds: No Currently Unemployed: No Education: Grade School Difficulty w/ Childcare or Family Care: No Living arrangements: with family Gender identity (if verbalized by the patient): Male Spiritual care concerns: No Meds Home Medications and Allergies Home Medications Medication Instructions Recorded Confirmed Type meclizine 25 mg tablet 50 mg PO DAILY 03/06/21 01/08/23 History Acetaminophen Extra Strength 1,000 mg PO DAILY 04/01/22 01/08/23 History docusate sodium 50 mg capsule 50 mg PO DAILY 01/08/23 01/08/23 History Allergies Allergy/AdvReac Type Severity Reaction Status Date / Time No Known Allergies Allergy Verified 01/07/23 23:03 Vital Signs Vital Signs - 24 hr 01/07/23 21:11 01/07/23 21:13 01/07/23 22:26 Temperature 98.2 F Pulse Rate 77 80 Respiratory Rate 20 19 Blood Pressure 144/113 H Pulse Oximetry 100 99 100 Oxygen Delivery Nasal Cannula Nasal Cannula Oxygen Flow Rate 5 5 01/07/23 22:27 01/07/23 22:30 01/07/23 23:12 Temperature Pulse Rate 78 78 99 Respiratory Rate 20 19 21 H Blood Pressure 153/57 H 146/58 H Pulse Oximetry 100 96 Oxygen Delivery Oxygen Flow Rate 01/07/23 21:40 01/07/23 23:52 01/08/23 00:00 Temperature Pulse Rate 89 96 88 Respiratory Rate 20 27 H 18 Blood Pressure Pulse Oximetry 97 100 Oxygen Delivery Oxygen Flow Rate 01/08/23 00:01 01/08/23 00:48 01/08/23 01:05 Temperature Pulse Rate 87 88 86 Respiratory Rate 18 16 18 Blood Pressure 134/65 Pulse Oximetry 100 100 100 Oxygen Delivery
[2023-01-08] MEDS: levoFLOXacin 500 MG/D5W 100 ML 500 MG/100 ML BAG 100 MG IVPB (17:06)
[2023-01-08] MEDS: methylPREDNISolone SOD SUCC 125 MG VIAL 60 MG IV PUSH (18:24)
--- NOTE | 2023-01-08 18:37 | PC.NURSE ---
This patient, Merle Escalona, was transferred to [[facility] ] on 01/08/23 at 1815. Personal belongings sent with patient. Report given to [Gabriela ]. Appropriate documentation sent with patient.
[2023-01-08] MEDS: IPRATROPIUM BR 0.02% INH SOLN 0.5 MG/2.5 ML VIAL INHALATION (20:22)
[2023-01-08 20:46] LABS: Glucose Point of Care 160 mg/dl (65-105)
[2023-01-09] MEDS: methylPREDNISolone SOD SUCC 125 MG VIAL 60 MG IV PUSH ×2 (00:55→06:11)
[2023-01-09 06:53] VITALS: BP 120/54; PULSE 80; RESP 18; TEMP 36.4; O2SAT 90
--- NOTE | 2023-01-09 09:29 | PM.DS ---
DS: Admitting Diagnosis Discharge Date today Admitting Diagnosis copd exacerbation DS: Discharge Diagnosis Discharge Diagnosis (1) Acute bacterial bronchitis: Code(s): J20.8 - Acute bronchitis due to other specified organisms; B96.89 - Other specified bacterial agents as the cause of diseases classified elsewhere Status: Acute (2) COPD exacerbation: Code(s): J44.1 - Chronic obstructive pulmonary disease with (acute) exacerbation Status: Acute DS: Summary Hospital Course Hospital Course: This is an 82-year-old man with a history of COPD, tobacco dependence, brought to the emergency room here by ambulance because he was having some shortness of breath and coughing that began 3 or 4 days before coming in.? he has symptoms coughing mostly nonproductive sometimes there was some clear looking sputum he was not really having any fever or chills.? He did feel like he was short of breath getting worse for the last couple of days? on arrival his oxygen saturations were low in the mid 80s.? He was treated with bronchodilators and steroids and troponin levels were sampled initially was normal and then betzaida 2.0 1 and then 2.3.? The patient's electrocardiogram shows evidence of sinus activity with a lot of atrial ectopics and some atrial pacing.? no evidence of an acute? injury on a electrocardiograms. not known to have coronary artery disease.?His chest x-ray also shows evidence of advanced emphysema/COPD he smoked for many years and continues to smoke and has been smoking for about 60 years.? In ED, patient was found have a leukocytosis, elevated BUN and creatinine above baseline.? CT of the chest shows no PE. During hospitalization, patient was suspected to have COPD exacerbation because acute bronchitis versus atypical pneumonia. patient received nebulizer, Levaquin IV, methylprednisolone. cardiology also saw the patient, rule out ACS. today patient feels better, shortness of breath has resolved, patient denies chest pain. cough is improving. patient will be discharged home today and follow-up with primary care doctor in 1 week. hospital course is uneventful. the patient is afebrile, hemodynamically stable Time Spent with Patient Time attestation: Total time spent providing and/or coordinating discharge services: Exam Narrative: GENERAL: Pleasant, in no acute distress. Well-nourished. - EYES: EOMI. Anicteric. - HENT: Moist mucous membranes. - LUNGS: decreased breath sounds bilaterally, no wheezing, rhonchi, or rales. - CARDIOVASCULAR: Regular rate and rhythm. No murmur. No JVD. - ABDOMEN: Soft, non-tender and non-distended. No palpable masses. - EXTREMITIES: No edema. Peripheral pulses 2+. Non-tender. - NEUROLOGIC: No focal neurological deficits. CN II-XII grossly intact. - PSYCHIATRIC: Awake, Alert and oriented x 3. Appropriate mood and affect. - SKIN: No rashes or lesions. Warm. - LYMPH: No cervical lymphadenopathy. DS: Data Data Completed and Pending Labs on day of discharge: Labs from last 24 hours 01/08/23 20:04 POC Capillary Glucose 160 H Discharge Plan Discharge Attending physician on discharge: Germania Arora Consulting providers: Ellie Ragsdale Discharging Clinician: Germania Arora Anticipated Discharge Date/Time: 01/09/23 09:24 Patient Disposition: Home, Self-Care Activity: as tolerated Diet: heart healthy Stand Alone Forms: General Discharge Information Follow-up/Referrals: Lauro,HOLLIE Mckeon [Primary Care Provider] - Discharge Medications: New albuterol sulfate 90 mcg/actuation HFA aerosol inhaler 1 puff inhalation QID PRN (Reason: shortness of breath or wheezing) Qty: 6.7 1RF levofloxacin 500 mg tablet 500 mg PO DAILY Qty: 4 0RF Continued Acetaminophen Extra Strength tablet 1,000 mg PO DAILY meclizine 25 mg tablet 50 mg PO DAILY Colace 50 mg Capsule 50 mg PO DAILY Date of admission: 01/08/23 08:50 Prim
== END 2023-01-09 08:00 | disposition home or self-care (01) ==
LOC: ANHED 01-08 04:04 → ANHIMU 01-08 10:55 → ANH3MEDSUR 01-09 09:28 → ANHIMU 01-11 13:09
PROVIDERS: Family Medicine; Internal Medicine; Admitting Provider Hospitalist; Emergency Provider Emergency Medicine; PCP Nurse Practitioner Family; Visit Provider Hospitalist
DX: J20.8 Acute bronchitis due to other specified organisms (principal); J44.1 Chronic obstructive pulmonary disease with (acute) exacerbation; E11.22 Type 2 diabetes mellitus with diabetic chronic kidney disease; N18.30 Chronic kidney disease, stage 3 unspecified; R77.8 Other specified abnormalities of plasma proteins; R94.31 Abnormal electrocardiogram [ECG] [EKG]; I45.10 Unspecified right bundle-branch block; Z20.822 Contact with and (suspected) exposure to COVID-19; R91.8 Other nonspecific abnormal finding of lung field; F17.210 Nicotine dependence, cigarettes, uncomplicated; Z85.51 Personal history of malignant neoplasm of bladder; Z95.0 Presence of cardiac pacemaker; Z79.1 Long term (current) use of non-steroidal anti-inflammatories (NSAID); Z79.899 Other long term (current) drug therapy
CPT/HCPCS: 36415; 71046; 71275; 80053; 82948; 83605; 84484; 85025; 85380; 87637; 93005; 94640; 96365; 96366; 96375; 96376; 99291; A9270; G0378; J1956; J2405; J2930; J3475; J7030; Q9967